=== PATIENT | female | born 1995 | race Caucasian/White ===

== ENCOUNTER → 2020-03-03 08:54 | Outpatient (CLI) | payer BC, SELFPAY ==
[2020-03-03 09:32] LABS: hCG Titer Quant., Serum < 1 mIU/mL (1-3)
== END ==
PROVIDERS: Nurse Practitioner Women's Health; PCP Internal Medicine; Referring Provider Obstetrics & Gynecology; Visit Provider Obstetrics & Gynecology
DX: N91.2 Amenorrhea, unspecified (principal)
CPT/HCPCS: 36415; 84702

== ENCOUNTER → 2021-08-03 | Outpatient (CLI) | payer OTHER, SELFPAY ==
[2021-08-05 22:07] LABS: Chlamydia By Nucleic Acid AMP Positive (Negative)
[2021-08-06 08:08] LABS: Gonococcus By Nucleic Acid AMP Negative (Negative)
[2021-08-09 14:16] LABS: HPV Reflexed? NOT INDICATED
== END | disposition home or self-care (01) ==
LOC: LABSPEC 16:26
PROVIDERS: PCP Internal Medicine; Referring Provider Nurse Practitioner Women's Health; Visit Provider Nurse Practitioner Women's Health
DX: Z12.4 Encounter for screening for malignant neoplasm of cervix (principal); Z11.3 Encounter for screening for infections with a predominantly sexual mode of transmission
CPT/HCPCS: 87491; 87591; 88175; G0145

== ENCOUNTER 2021-11-03 08:43 | Outpatient (CLI) | payer OTHER, SELFPAY ==
[2021-11-05 22:07] LABS: Chlamydia By Nucleic Acid AMP Negative (Negative)
[2021-11-06 19:25] LABS: Gonococcus By Nucleic Acid AMP Negative (Negative)
== END 2021-11-03 23:59 | disposition home or self-care (01) ==
LOC: LABSPEC 11-04 08:44
PROVIDERS: PCP Internal Medicine; Visit Provider Nurse Practitioner Women's Health
DX: Z11.3 Encounter for screening for infections with a predominantly sexual mode of transmission (principal)
CPT/HCPCS: 87491; 87591

== ENCOUNTER 2021-11-17 15:38 | Outpatient (CLI) | payer OTHER, SELFPAY ==
--- NOTE | 2021-11-17 15:39 | RAD_ITS ---
STUDY: X-RAY - LUMBAR SPINE REASON FOR EXAM: Female, 26 years old. Injury TECHNIQUE: 5 view(s) of the lumbar spine were obtained. COMPARISON: None FINDINGS: There is straightening of the normal lumbar lordosis. There is no substantial scoliosis. There is a normal alignment of the vertebrae. Normal vertebral bodies and endplates. Normal disc space heights. The soft tissue structures are unremarkable. RAD/L/S Spine Min 4 Views IMPRESSION: Straightening of the normal lumbar lordosis. Electronically Signed: Trey Piedra MD at 15:58 EDT ,
== END 2021-11-17 23:59 | disposition home or self-care (01) ==
LOC: MTRAD 15:39
PROVIDERS: PCP Internal Medicine; Referring Provider Physician Assistant; Visit Provider Physician Assistant
DX: M54.50 Low back pain, unspecified (principal)
CPT/HCPCS: 72110

== ENCOUNTER → 2022-11-13 | Outpatient (CLI) | payer OTHER, SELFPAY ==
[2022-11-13 03:44] LABS: D-Dimer Quantitative (DVT/PE) < 0.27 FEU/ug/m (0.27-0.49)
[2022-11-13 03:48] LABS: Anion Gap 6 (5-15); BUN 11 mg/dL (7-18); BUN/Creat Ratio 13.6 RATIO (10-20); Calcium,Total 9.4 mg/dL (8.5-10.1); Chloride 105 mmol/L (98-107); Creatinine, Serum 0.81 mg/dL (0.55-1.02); EST Glomerular Filtration Rate 90 mL/min (>60); Est Glom Filt Rate - Afr Amer 109 mL/min (>60); Glucose 96 mg/dL (74-106); Potassium 3.9 mmol/L (3.5-5.1); Sodium Level 138 mmol/L (136-145); Troponin-I HS 7 pg/mL (3.0-54.0)
== END | disposition home or self-care (01) ==
PROVIDERS: PCP Internal Medicine; Visit Provider Family Medicine
DX: R07.9 Chest pain, unspecified (principal)
CPT/HCPCS: 80048; 84484; 85379

== ENCOUNTER → 2022-12-21 | Outpatient (CLI) | payer OTHER, SELFPAY ==
[2022-12-21 12:29] LABS: HIV - WCH Non-Reactive (Nonreactive); Hepatitis C Antibody Non-Reactive (Nonreactive); Syphilis Antibodies Non-reactive
[2022-12-22 06:09] LABS: HSV 2 IgG < 0.91 index (0.00-0.90)
[2022-12-24 12:08] LABS: Chlamydia By Nucleic Acid AMP Negative (Negative); Gonococcus By Nucleic Acid AMP Negative (Negative)
== END | disposition home or self-care (01) ==
PROVIDERS: PCP Internal Medicine; Referring Provider Nurse Practitioner Women's Health; Visit Provider Nurse Practitioner Women's Health
DX: Z20.2 Contact with and (suspected) exposure to infections with a predominantly sexual mode of transmission (principal)
CPT/HCPCS: 36415; 86695; 86696; 86703; 86780; 86803; 87491; 87591

== ENCOUNTER → 2023-12-26 | Outpatient (CLI) | payer OTHER, SELFPAY ==
[2023-12-29 07:08] LABS: Chlamydia By Nucleic Acid AMP Negative (Negative); Gonococcus By Nucleic Acid AMP Negative (Negative)
[2024-01-01 16:06] LABS: HPV Reflexed? NOT INDICATED
== END | disposition home or self-care (01) ==
LOC: LABSPEC 14:25
PROVIDERS: PCP Internal Medicine; Referring Provider Nurse Practitioner Women's Health; Visit Provider Nurse Practitioner Women's Health
DX: Z12.4 Encounter for screening for malignant neoplasm of cervix (principal); Z20.2 Contact with and (suspected) exposure to infections with a predominantly sexual mode of transmission
CPT/HCPCS: 87491; 87591; 88175; G0145

== ENCOUNTER → 2024-03-14 | Outpatient (CLI) | payer OTHER, SELFPAY ==
[2024-03-14 10:57] LABS: hCG Titer Quant., Serum 60 mIU/mL (1-3)
[2024-03-14 11:35] LABS: HIV - WCH Non-Reactive (Nonreactive); Hepatitis C Antibody Non-Reactive (Nonreactive); Syphilis Antibodies Non-reactive
[2024-03-15 06:09] LABS: HSV 2 IgG < 0.91 index (0.00-0.90)
== END | disposition home or self-care (01) ==
LOC: PAVLAB 10:20
PROVIDERS: PCP Internal Medicine; Referring Provider Nurse Practitioner Women's Health; Visit Provider Nurse Practitioner Women's Health
DX: Z34.90 Encounter for supervision of normal pregnancy, unspecified, unspecified trimester (principal); Z20.2 Contact with and (suspected) exposure to infections with a predominantly sexual mode of transmission; Z3A.00 Weeks of gestation of pregnancy not specified
CPT/HCPCS: 36415; 84702; 86695; 86696; 86703; 86780; 86803

== ENCOUNTER → 2024-03-16 | Outpatient (CLI) | payer OTHER, SELFPAY ==
[2024-03-16 11:43] LABS: hCG Titer Quant., Serum 170 mIU/mL (1-3)
== END | disposition home or self-care (01) ==
PROVIDERS: PCP Internal Medicine; Referring Provider Nurse Practitioner Women's Health; Visit Provider Nurse Practitioner Women's Health
DX: Z34.90 Encounter for supervision of normal pregnancy, unspecified, unspecified trimester (principal); Z3A.00 Weeks of gestation of pregnancy not specified
CPT/HCPCS: 36415; 84702

== ENCOUNTER → 2024-03-23 | Outpatient (CLI) | payer SELFPAY ==
[2024-03-23 11:16] LABS: hCG Titer Quant., Serum 3122 mIU/mL (1-3)
== END | disposition home or self-care (01) ==
PROVIDERS: PCP Internal Medicine; Referring Provider Nurse Practitioner Women's Health; Visit Provider Nurse Practitioner Women's Health
DX: Z34.90 Encounter for supervision of normal pregnancy, unspecified, unspecified trimester (principal)
CPT/HCPCS: 36415; 84702

== ENCOUNTER → 2024-04-10 | Outpatient (CLI) | payer SELFPAY ==
--- NOTE | 2024-04-10 12:30 | US_ITS ---
INDICATION: Dating EXAMINATION: Ultrasound US OB Transvaginal TECHNIQUE: Transabdominal pelvic ultrasound was performed. Grayscale, spectral waveform, and color flow Doppler evaluation of the adnexa. COMPARISON: No relevant prior comparison study available LMP: [January 17, 2024 Beta-hCG: Unknown FINDINGS: UTERUS: 9.0 x 5.6 x 6.5 cm. RIGHT OVARY: 3.8 x 2.8 x 2.7 cm. Normal. LEFT OVARY: 2.0 x 2.1 x 3.6 cm. Normal. FREE FLUID: None. INTRAUTERINE GESTATIONAL SAC: Single. The mean sac diameter measures 3.29 cm. YOLK SAC: Identified. The yolk sac measures 0.25 cm POLE: Identified. The crown-rump length measures 1.43 cm. . ESTIMATED GESTATION AGE: 8 weeks and 1 day. HEART MOTION: 148 bpm. PLACENTA: Not visualized due to age. SUBCHORIONIC HEMORRHAGE: None. AMNIOTIC FLUID: Qualitatively normal. US/Transvaginal w/Preg US IMPRESSION: Single live intrauterine . Estimated gestational age is 8 weeks and 1 day. Electronically Signed: Oralia Bro MD at 9:53 EDT ,
== END | disposition home or self-care (01) ==
PROVIDERS: PCP Internal Medicine; Referring Provider Nurse Practitioner Women's Health; Visit Provider Nurse Practitioner Women's Health
DX: Z34.90 Encounter for supervision of normal pregnancy, unspecified, unspecified trimester (principal)
CPT/HCPCS: 76817

== ENCOUNTER → 2024-04-18 | Outpatient (CLI) | payer SELFPAY ==
[2024-04-23 22:07] LABS: Chlamydia By Nucleic Acid AMP Negative (Negative); Gonococcus By Nucleic Acid AMP Negative (Negative)
== END | disposition home or self-care (01) ==
PROVIDERS: PCP Internal Medicine; Referring Provider Advanced Practice Midwife; Visit Provider Advanced Practice Midwife
DX: E66.9 Obesity, unspecified (principal)
CPT/HCPCS: 87086; 87088; 87491; 87591

== ENCOUNTER → 2024-04-25 | Outpatient (CLI) | payer BC, SELFPAY | END | disposition home or self-care (01) | LOC: LABSPEC 14:46 | PROVIDERS: PCP Internal Medicine; Referring Provider Obstetrics & Gynecology; Visit Provider Obstetrics & Gynecology | DX: N89.8 Other specified noninflammatory disorders of vagina (principal) | CPT/HCPCS: 87070; 87205 ==

== ENCOUNTER → 2024-04-30 | Outpatient (CLI) | payer BC, SELFPAY ==
[2024-04-30 08:43] LABS: Absolute Lymphocyte Count 2.11 X10^3/uL (0.83-4.51); Absolute Neutrophil Count 6.9 X10^3/uL (2.0-7.7); Basophil# 0.06 X10^3/uL; Basophil% 0.6 % (0-1); Eosinophil# 0.17 X10^3/uL; Eosinophils% 1.7 % (0-5); Hematocrit 37.1 % (37-47); Hemoglobin 12.4 g/dL (12.0-15.0); Lymphocyte # 2.11 X10^3/ul (0.83-4.51); Lymphocyte % 20.9 % (19-41); Mean Corp Hgb Conc 33.4 g/dL (32-36); Mean Corpuscular Volume 80.7 fL (81-99); Mean Platelet Vol. 9.8 fl (6.2-12.0); Monocyte# 0.75 X10^3/uL; Monocyte% 7.4 % (0-10); NRBC Flagged by Analyzer 0 % (0-5); Neutrophil # 6.93 X10^3/uL (2.7-7.7); Neutrophil % 68.6 % (47-70); Platelet Count 202 K/mm3 (150-450); RBC Distribution Width CV 12.8 % (11.6-14.6); RBC Distribution Width SD 37.2 fl (35.1-43.9); White Blood Count 10.1 K/mm3 (4.4-11.0)
[2024-04-30 09:52] LABS: Hemoglobin A1c 4.8 % (3.8-5.6)
[2024-04-30 10:11] LABS: HIV - WCH Non-Reactive (Nonreactive); Hepatitis B Surface Antigen Non-Reactive (Nonreactive); Hepatitis C Antibody Non-Reactive (Nonreactive); Rubella IgG Reactive (Nonreactive); Syphilis Antibodies Non-reactive
== END | disposition home or self-care (01) ==
LOC: LAB 08:04
PROVIDERS: PCP Internal Medicine; Referring Provider Advanced Practice Midwife; Visit Provider Advanced Practice Midwife
DX: O99.214 Obesity complicating childbirth (principal); Z3A.00 Weeks of gestation of pregnancy not specified
CPT/HCPCS: 36415; 83036; 85025; 86703; 86762; 86780; 86803; 86850; 86900; 86901; 87340

== ENCOUNTER → 2024-06-14 | Outpatient (CLI) | payer BC, SELFPAY ==
--- OUTSIDE RECORDS SUMMARY | 2024-06-14 08:31 | XMS RPT_ITS | CCD ---
Author Organization [facility] Care Team Providers Care Interpretive Program Coordinator Name Role Phone Leah Madrigal Unavailable Fast, Gililan A Unavailable Holly Cuellar Unavailable Unavailable Unavailable Unavailable Leah Madrigal Attending Unavailable Fast, Gillian A Referring Unavailable Leah Madrigal Consulting Unavailable Leah Madrigal DO Unavailable [phone] Fast DO, Gillian A Unavailable Gravius RECORD FILING CLERK, Talya Unavailable Unavailable Slarb SHIP ENGINES OPERATING ENGINEER, Jaqui Unavailable Unavailable Unavailable Unavailable Mat SHIP ENGINES OPERATING ENGINEER, SASKIA Unavailable Unavailable Deion SHIP ENGINES OPERATING ENGINEER, Abelardo Unavailable Unavailable Unavailable Unavailable Medications Current Medications Medication Drug Class(es) Dates Sig (Normalized) Sig (Original) ALPRAZolam 0.5 mg oral tablet (2 sources) Benzodiazepine Start: 04-14-2023 Xanax 0.5 mg oral tablet 1 (one) tablet q 6-8 hours prn anxiety with flying for 0 days Quantity: 10 {Tablet} Refills: 0 Ordered: 14-Apr-2023 Leah Madrigal DO, DO, Kathleen Start : 14-Apr-2023 Active Comments: Disp: 10 TEN Dx: Fear of flyingoars Start: 04-14-2023 take 1 tablet by latonia th every four to six hours as needed for anxiety Xanax 0.5 mg oral tablet 1 (one) tablet q 4-6 hours prn anxiety with flying for 0 days Quantity: 10 {Tablet} Refills: 0 Ordered: 14-Apr-2023 Leah Madrigal DO, DO, Kathleen Start : 14-Apr-2023 Active Comments: Disp: 10 TEN Dx: Fear of flying Comment on above: Disp: 10 TEN Dx: Fea r of flying Disp: 10 TEN Dx: Fea r of flyingoars Sprintec (28) 0.25-35 mg-mcg oral tablet (8 sources) Progestin, Estrogen Start: 04-14-2023 take 1 tablet by mouth once daily Sprintec (28) 0.25-35 mg-mcg oral tablet 1 (one) Tablet daily for 30 days Quantity: 30 {Tablet} Refills: 2 Ordered: 14-Apr-2023 Leah Madrigal DO, DO, Kathleen Start : 14-Apr-2023 Active Start: 08-22-2018 End: 10-28-2019 take 1 tablet by mouth once daily Sprintec 28 0.25-35 MG-MCG Oral Tablet 1 (one) Tablet daily for 30 days Quantity: 30 {Tablet} Refills: 2 Ordered: 28-Oct-2019 Talya Marin CMA Start : 22-Aug-2018 End : 28-Oct-2019 Inactive Start: 08-22-2018 take 1 tablet by latonia th once daily Sprintec 28 0.25-35 MG-MCG Oral Tablet 1 (one) Tablet daily for 30 days Quantity: 30 {Tablet} Refills: 2 Ordered: 22-Aug-2018 Leah Madrigal DO, DO, Kathleen Start : 22-Aug-2018 Active End: 08-18-2015 take 1 tablet by mouth once daily SPRINTEC 28, 0.25-35MG-MCG (Oral Tablet) 1 tab daily (0.25-35 MG-MCG) End : 18-Aug-2015 Discontinued ondansetron 4 mg oral tablet (2 sources) Serotonin-3 Receptor Antagonist Start: 04-14-2023 ondansetron HCL 4 mg oral tablet 1 (one) tablet q 6-8 hours prn nausea for 0 days Quantity: 10 {Tablet} Refills: 0 Ordered: 14-Apr-2023 Leah Madrigal DO, DO, Kathleen Start : 14-Apr-2023 Active Start: 04-14-2023 ondansetron HC L 4 mg oral tablet 1 (one) tablet q 6-8 hours prn nausea for 0 days Quantity: 10 {Tablet} Refills: 0 Ordered: 14-Apr-2023 Kaitlin TYLER Leah Mirza DO Start : 14-Apr-2023 Active rizatriptan 10 mg disintegrating oral tablet (3 sources) Serotonin-1b and Serotonin-1d Receptor Agonist Start: 04-14-2023 take 1 tablet by mouth every two hours Maxalt-ENVIRONMENTAL AIR SPECIALIST 10 mg oral Tablet,disintegrating 1 (one) Tablet at onset of migrainous cruz may repeat in 2hr if needed for 0 days Quantity: 12 {Tablet} Refills: 2 Ordered: 14-Apr-2023 Kaitlin TYLER Leah Madrigal DO Leah Start : 14-Apr-2023 Active Start: 04-14-2023 take 1 tablet by latonia th every two hours Maxalt-ENVIRONMENTAL AIR SPECIALIST 10 mg oral Tablet,disintegrating 1 (one) Tablet at onset of migrainous cruz may repeat in 2hr if needed for 0 days Quantity: 12 {Tablet} Refills: 2 Ordered: 14-Apr-2023 Kaitlin TYLER Leah Madrigal DO Leah Start : 14-Apr-2023 Active Start: 03-05-2021 take 1 tablet by latonia th every two hours Maxalt-ENVIRONMENTAL AIR SPECIALIST 10 MG Oral Tablet Disintegrating 1 (one) Tablet at onset of migrainous cruz may repeat in 2hr if needed for 0 days Quantity: 12 {Tablet} Refills: 2 Ordered: 05-Mar-2021 GravAlexandra bland CMAin Start : 05-Mar-2021 Active tiZANidine 4 mg oral tablet (3 sources) Central alpha-2 Adrenergic Agonist Start: 03-05-2021 End: 04-14-2023 take 1 tablet by mouth twice daily as needed tiZANidine 4 mg oral tablet 1 (one) Tablet bid prn muscle tension for 0 days Quantity: 30 {Tablet} Refills: 0 Ordered: 14-Apr-2023 SASKIA Rivero LPN Start : 05-Mar-2021 End : 14-Apr-2023 Inactive Completed/Discontinued Medications Medication Drug Class(es) Dates Sig (Normalized) Sig (Original) acetaminophen 500 mg / caffeine 65 mg oral tablet (3 sources) Central Nervous System Stimulant, Methylxanthine Excedrin Tension Headache 500-65 MG Oral Tablet daily (500-65 MG) Inactive azithromycin 250 mg oral tablet (4 sources) Macrolide Antimicrobial Start: 10-28-2016 End: 10-27-2017 Zithromax Z-Meño 250 MG Oral Tablet uad Tablet until gone for 0 days Quantity: 1 {Package} Refills: 0 Ordered: 27-Oct-2017 Holly Cuellar RN Start : 28-Oct-2016 End : 27-Oct-2017 Inactive Comments: take as one dose so 1gm total Comment on above: take as one dose so 1gm total cephalexin 500 mg oral capsule (4 sources) Cephalosporin Antibacterial Start: 08-18-2015 End: 08-25-2015 take 1 capsule by mouth twice daily KEFLEX, 500MG (Oral Capsule) 1 (one) Capsule bid for 7 days Quantity: 14 {QS} Refills: 0 Ordered: 18-Aug-2015 Vee Angelita Start : 18-Aug-2015 End : 25-Aug-2015 Inactive citalopram 10 mg oral tablet (4 sources) Serotonin Reuptake Inhibitor Start: 06-07-2017 End: 10-28-2019 take 1 tablet by mouth once daily Citalopram Hydrobromide 10 MG Oral Tablet 1 (one) Tablet qd for 0 days Quantity: 30 {Tablet} Refills: 10 Ordered: 28-Oct-2019 Talya Marin CMA Start : 07-Jun-2017 End : 28-Oct-2019 Inactive levothyroxine sodium 0.025 mg oral tablet (3 sources) l-Thyroxine Start: 02-05-2020 End: 03-05-2021 take 1 tablet by mouth once daily Synthroid 25 MCG Oral Tablet 1 (one) Tablet qd on empty stomach for 0 days Quantity: 90 {Tablet} Refills: 1 Ordered: 05-Mar-2021 Tania VILLALOBOS Talya Start : 05-Feb-2020 End : 05-Mar-2021 Inactive Dispense as Written Comments: EDUAR Comment on above: EDUAR nitrofurantoin, macrocrystals 25 mg / nitrofurantoin, monohydrate 75 mg oral capsule (4 sources) Nitrofuran Antibacterial Start: 10-24-2016 End: 10-31-2016 take 1 capsule by mouth twice daily Macrobid 100 MG Oral Capsule 1 (one) Capsule bid for 7 days Quantity: 14 {Capsule} Refills: 0 Ordered: 24-Oct-2016 Leah Madrigal DO, DO, Kathleen Start : 24-Oct-2016 End : 31-Oct-2016 Inactive Problems Active Problems Problem Classification Problem Date Documented Date Episodic/Chronic Anxiety disorders (12 sources) Anxiety; Translations: [Mixed anxiety and depressive disorder] 10-27-2017 Chronic Comment on above: going to [place] 8 tasha r plane ride Bacterial infection; unspecified site (8 sources) Chlamydial infection; Translations: [Chlamydia] Resolved: 10-27-2017 10-27-2017 Episodic Blindness and vision defects (5 sources) Eye / vision finding; Translations: [Change in vision] Resolved: 03-05-2021 03-05-2021 Episodic Cardiac dysrhythmias (5 sources) Palpitations; Translations: [Palpitation] Resolved: 03-05-2021 03-05-2021 Episodic Contraceptive and procreative management (11 sources) Contraception ; Translations: [General counseling and advice for contraceptive management] 03-05-2021 Episodic Genitourinary symptoms and ill-defined conditions (8 sources) Dysuria; Translations: [Dysuria] 10-27-2017 Episodic Headache; including migraine (6 sources) Headache; Translations: [Chronic intractable headache, unspecified headache type] 03-05-2021 Episodic Comment on above: combo muslce tension and migraine --and analgesic rebound-- stop excrdrin daily immediatly Headache; including migraine (1 source) Headache; including migraine Immunizations and screening for infectious disease (16 sources) Need for prophylactic vaccination and inoculation against influenza; Translations: [Needs influenza immunization] 03-05-2021 Episodic Malaise and fatigue (12 sources) Fatigue; Translations: [Fatigue] 03-05-2021 Episodic Mood disorders (4 sources) Mood disorders Nausea and vomiting (4 sources) Nausea; Translations: [Nausea] 04-14-2023 Episodic Comment on above: with flying going to [place] Nonmalignant breast conditions (6 sources) Breast lump; Translations: [Breast lump on right side at 3 o'clock position] 10-27-2017 Episodic Other female genital disorders (6 sources) Abnormal vaginal bleeding; Translations: [Abnormal vaginal bleeding] Resolved: 03-05-2021 03-05-2021 Chronic Other female genital disorders (2 sources) Abnormal vaginal bleeding; Translations: [Abnormal vaginal bleeding] 10-27-2017 Episodic Other infections; including parasitic (6 sources) History of chlamydial infection; Translations: [History of chlamydia] 10-27-2017 Episodic Comment on above: binh on pap to assur e not asx and it was erradicated anthony with new relationship Other nutritional; endocrine; and metabolic disorders (20 sources) Body mass index 30+ - obesity; Translations: [BMI 38.0-38.9,adult] Resolved: 04-14-2023 10-31-2017 Chronic Other nutritional; endocrine; and metabolic disorders (5 sources) Body mass index 40+ - severely obese; Translations: [BMI 40.0-44.9, adult] Resolved: 03-05-2021 03-05-2021 Chronic Other screening for suspected conditions (not mental disorders or infectious disease) (10 sources) Thyroid hormone tests abnormal; Translations: [Abnormal TSH] 03-05-2021 Episodic Other skin disorders (6 sources) Eruption; Translations: [Rash] Resolved: 10-09-2015 10-24-2016 Episodic Comment on above: rt side only acne vs foliculitis Residual codes; unclassified (8 sources) Family history of ischemic heart disease; Translations: [FAMILY HISTORY OF ISCHEMIC HEART DISEASE (Renamed from Fam hx-ischem heart disease)] 10-27-2017 Episodic Residual codes; unclassified (1 source) Needs influenza immunization; Translations: [Need for prophylactic vaccination and inoculation against influenza (Renamed from Need for immunization against influenza)] 10-27-2017 Episodic Residual codes; unclassified (16 sources) Non-smoker; Translations: [Nonsmoker] 10-28-2019 Episodic Thyroid disorders (9 sources) Hypothyroidism; Translations: [Hypothyroid] 03-05-2021 Chronic Unclassified (9 sources) General counseling and advice for contraceptive management; Translations: [Patient encounter status] 10-27-2017 Unclassified (20 sources) Unclassified (1 source) Elevated C-reactive protein Unclassified (3 sources) Non-smoker Unclassified (1 source) BMI 38.0-38.9,adult Unclassified (1 source) BMI 39.0-39.9,adult Unclassified (1 source) Change in vision Unclassified (1 source) Palpitation Urinary tract infections (6 sources) Bacterial urinary infection; Translations: [UTI (urinary tract infection), bacterial] 10-27-2017 Episodic Past or Other Problems Problem Classification Problem Date Documented Date Episodic/Chronic Unclassified (3 sources) Physical exam, annual; Translations: [Patient encounter status] Resolved: 10-09-2015 10-09-2015 Comment on above: GAVE gardasil info t alked about hpv and pap in next 1-2 years Unclassified (2 sources) Rash Unclassified (6 sources) Patient encounter status; Translations: [Encounter for gynecological examination with abnormal finding] 10-27-2017 Unclassified (3 sources) Non-smoker; Translations: [Nonsmoker] 10-27-2017 Unclassified (4 sources) Pregnancies (); Translations: [Pregnancies ()] 10-27-2017 Comment on above: 0. Unclassified (2 sources) Screening for HPV (human papillomavirus) (Renamed from Encounter for screening for human papillomavirus (HPV)) Unclassified (4 sources) No previous Illnesses Resolved: 10-09-2015 10-24-2016 Unclassified (4 sources) Unspecified Diagnosis Resolved: 10-09-2015 10-09-2015 Unclassified (2 sources) BMI 35.0-35.9,adult Unclassified (2 sources) Breast lump on right side at 3 o'clock position Unclassified (2 sources) History of chlamydia Unclassified (2 sources) BMI 34.0-34.9,adult Unclassified (1 source) BMI 40.0-44.9, adult Unclassified (1 source) Abnormal TSH Urinary tract infections (2 sources) Urinary tract infections Results Test Name Value Interpretation Reference Range Facility KAN (ANTINUCLEAR ANTIBODY) ( [id number])Ordered By: Band Sawmill Operator on 03-05-2021 Nuclear Ab Ql (S) Negative Normal Compreh ensive [facility]; [facility] Work Phone: Comment on above: PATIENT NOT FASTINGP ERFORMED BY: [employer]70 [facility] [id number] C-REACTIVE PROTEIN ([id number])Or dered By: Band Sawmill Operator on 03-05-2021 CRP [Mass/Vol] 14 mg/L Abnormal 0-10 Comprehens divya [facility]; [facility] Work Phone: Comment on above: PATIENT NOT FASTINGP ERFORMED BY: [employer]70 [email or web address] [id number] CALCIFIDIOL (11934) VIT D 25 Ordered By: Band Sawmill Operator on 03-05-2021 25-hydroxyvitamin D [Mass/Vol] 43.2 ng/mL Normal 30.0-100.0 [facility]; [facility] Work Phone: Comment on above: Vitamin D deficiency has been defined by the Vista ofMedicine and an Endocrine Society practice guideline as alevel of serum 25-OH vitamin D less than 20 ng/mL (1,2).The Endocrine Society went on to further define vitamin Dinsufficiency as a level between 21 and 29 ng/mL (2).1. IOM (Vista of Medicine). 2010. Dietary reference intakes for calcium and D. [place]: The National Academies Press.2. Zainab MF, Delroy NC, Patrick CRUZ, et al. Evaluation, treatment, and prevention of vitamin D deficiency: an Endocrine Society clinical practice guideline. JCEM. 2010; 96(7):1911-30. PATIENT NOT FASTINGP ERFORMED BY: [employer] LabAfflerp Vdxkvq9099 [address]Dublin [place] [id number] CBC (AUTO) ([id number])Ordered By : Band Sawmill Operator on 03-05-2021 Erythrocyte distribution width (RBC) [Ratio] 13.1 % Normal 11.7-15.4 [facility]; [facility] Work Phone: Comment on above: PATIENT NOT FASTINGP ERFORMED BY: [facility] Gbjphv2975 [address]Dublin [place] [id number] Hematocrit (Bld) [Volume fraction] 42.3 % Normal 34.0-46.6 [facility]; [facility] Work Phone: Comment on above: PATIENT NOT FASTINGP ERFORMED BY: [facility] Smngqd1827 [address]Dublin [place] [id number] Hemoglobin (Bld) [Mass/Vol] 13.9 g/dL Normal 11.1-15.9 [facility]; [facility] Work Phone: Comment on above: PATIENT NOT FASTINGP ERFORMED BY: [facility] Fsjoll3862 [address]Dublin [place] [id number] MCH (RBC) [Entitic mass] 26.7 pg Normal 26.6-33.0 [facility]; [facility] Work Phone: Comment on above: PATIENT NOT FASTINGP ERFORMED BY: CB [facility] Mmdwtk1541 [address]Dublin [place] [id number] MCHC (RBC) [Mass/Vol] 32.9 g/dL Normal 31.5-35.7 [facility]; [facility] Work Phone: Comment on above: PATIENT NOT FASTINGP ERFORMED BY: CB [facility] Goxias7034 [address]Dublin [place] [id number] MCV (RBC) [Entitic vol] 81 fL Normal 79-97 [facility]; [facility] Work Phone: Comment on above: PATIENT NOT FASTINGP ERFORMED BY: CB [facility] Qlptti4118 [address]Dublin [place] [id number] Platelets (Bld) [#/Vol] 253 10*3/uL Normal 150-450 [facility]; [facility] Work Phone: Comment on above: PATIENT NOT FASTINGP ERFORMED BY: CB [facility] Klnygq7142 [address]Dublin [place] [id number] RBC (Bld) [#/Vol] 5.20 10*6/uL Normal 3.77-5.28 Compr ensive [facility]; [facility] Work Phone: Comment on above: PATIENT NOT FASTINGP ERFORMED BY: CB [facility] Wgzive6226 [address]Dublin [place] [id number] WBC (Bld) [#/Vol] 6.0 10*3/uL Normal 3.4-10.8 Compre [facility]; [facility] Work Phone: Comment on above: PATIENT NOT FASTINGP ERFORMED BY: CB [facility] Cxbowp5454 [address]Dublin [place] [id number] HCG Qualitative, Serum (8470 3)Ordered By: Band Sawmill Operator on 03-05-2021 Beta HCG ( test) Ql Negative Normal [facility]; [facility] Work Phone: Comment on above: PATIENT NOT FASTINGP ERFORMED BY: CB [facility] Nthenc7859 [address]Dublin [place] [id number] METABOLIC PANEL, COMPREHENSI VE ([id number])Ordered By: Band Sawmill Operator on 03-05-2021 Albumin [Mass/Vol] 4.4 g/dL Normal 3.9-5.0 [facility]; [facility] Work Phone: Comment on above: PATIENT NOT FASTINGP ERFORMED BY: INGRID LabCoandrea HendrixAnaohv4313 [address]blin [place] [id number] Albumin/Globulin [Mass ratio] 1.5 {ratio} Normal 1.2-2.2 [facility]; [facility] Work Phone: Comment on above: PATIENT NOT FASTINGP ERFORMED BY: INGRID LabCoandrea HendrixPdnjnt1763 [address]blin [place] [id number] ALP [Catalytic activity/Vol] 77 U/L Normal 48-121 [facility]; [facility] Work Phone: Comment on above: PATIENT NOT FASTINGP ERFORMED BY: INGRID LabCoandrea HendrixBdcjfn4235 [address] RoadCritical Access Hospitalin [place] [id number] ALT [Catalytic activity/Vol] 19 U/L Normal 0-32 [facility]; [facility] Work Phone: Comment on above: PATIENT NOT FASTINGP ERFORMED BY: INGRID LabDenny Vocuql[address] [facility] [place] [id number] AST [Catalytic activity/Vol] 20 U/L Normal 0-40 [facility]; [facility] Work Phone: Comment on above: PATIENT NOT FASTINGP ERFORMED BY: CB [facility] Podvhw[address] [facility]in [place] [id number] Bilirubin [Mass/Vol] 0.4 mg/dL Normal 0.0-1.2 [facility]; [facility] Work Phone: Comment on above: PATIENT NOT FASTINGP ERFORMED BY: INGRID LabCoandrea Bersre[address] [facility] [place] [id number] Calcium [Mass/Vol] 9.0 mg/dL Normal 8.7-10.2 [facility]; [facility] Work Phone: Comment on above: PATIENT NOT FASTINGP ERFORMED BY: [facility] Eedplh1373 [address]bl[address] [place] [id number] Chloride [Moles/Vol] 104 mmol/L Normal 96-106 [facility]; [facility] Work Phone: Comment on above: PATIENT NOT FASTINGP ERFORMED BY: CB [facility] Ymcoin[address] [facility] [place] [id number] CO2 [Moles/Vol] 22 mmol/L Normal 20-29 [facility]; [facility] Work Phone: Comment on above: PATIENT NOT FASTINGP ERFORMED BY: CB [facility] Iqugzk4250 [address]bl[address] [place] [id number] Creatinine [Mass/Vol] 0.79 mg/dL Normal 0.57-1.00 [facility]; [facility] Work Phone: Comment on above: PATIENT NOT FASTINGP ERFORMED BY: [facility] Ypbbzw[address] [facility] [id number] GFR/1.73 sq M.predicted among blacks CKD-EPI (S/P/Bld) [Vol rate/Area] 120 mL/min/1.73 Normal [facility]; [facility] Work Phone: Comment on above: [facility] currently reports eGFR in compliance with the current recommendations of the National Kidney Foundation. [facility]aint [facility] will update reporting as new guidelines are published from the NKF-ASN Task force. PATIENT NOT FASTINGP ERFORMED BY: [facility] Uebdgu[address] [facility] [id number] GFR/1.73 sq M.predicted among non-blacks CKD-EPI (S/P/Bld) [Vol rate/Area] 104 mL/min/1.73 Normal [facility]; [facility] Work Phone: Comment on above: PATIENT NOT FASTINGP ERFORMED BY: CB [facility] Kgvckz[address] [facility] [place] [id number] Globulin (S) [Mass/Vol] 3.0 g/dL Normal 1.5-4.5 [facility]; [facility] Work Phone: Comment on above: PATIENT NOT FASTINGP ERFORMED BY: INGRID LabDenny Avila[address] [facility] [place] [id number] Glucose [Mass/Vol] 85 mg/dL Normal 65-99 [facility]; [facility] Work Phone: Comment on above: PATIENT NOT FASTINGP ERFORMED BY: INGRID LabDenny Avila[address] [facility] [id number] Potassium [Moles/Vol] 4.7 mmol/L Normal 3.5-5.2 [facility]; [facility] Work Phone: Comment on above: PATIENT NOT FASTINGP ERFORMED BY: INGRID LabDenny HendrixMqcemm[address] [facility] [id number] Protein [Mass/Vol] 7.4 g/dL Normal 6.0-8.5 [facility]; [facility] Work Phone: Comment on above: PATIENT NOT FASTINGP ERFORMED BY: INGRID LabDenny HendrixFqixnt[address] [facility] [id number] Sodium [Moles/Vol] 140 mmol/L Normal 134-144 [facility]; [facility] Work Phone: Comment on above: PATIENT NOT FASTINGP ERFORMED BY: INGRID Hendrixlin6370 [facility] [id number] Urea nitrogen [Mass/Vol] 11 mg/dL Normal 6-20 [facility]; [facility] Work Phone: Comment on above: PATIENT NOT FASTINGP ERFORMED BY: INGRID LabCo Pdhyfd[address] [facility] [id number] Urea nitrogen/Creatini ne [Mass ratio] 14 mg/mg Normal 9-23 [facility]; [facility] Work Phone: Comment on above: PATIENT NOT FASTINGP ERFORMED BY: INGRID LabCoandrea HendrixCzttwb[address] [facility]in [place] [id number] SED RATE ERYTHROCYTE ([id number]) Ordered By: Band Sawmill Operator on 03-05-2021 ESR (Bld) [Velocity] 12 mm/h Normal 0-32 [facility]; [facility] Work Phone: Comment on above: PATIENT NOT FASTINGP ERFORMED BY: [facility] Vxitmx9580 [address]Dublin [place] [id number] TSH (25072)Ordered By: [place] [employer] m Decaler on 03-05-2021 TSH Qn 2.420 {uIU/mL} Normal 0.450-4.500 Comprehen sive [facility]; [facility] Work Phone: Comment on above: PATIENT NOT FASTINGP ERFORMED BY: CB [facility] Twtpuv9091 [address]Dublin [place] [id number] VITAMIN B-12 (CYANOCOBALAMIN ) ([id number])Ordered By: Band Sawmill Operator on 03-05-2021 Cobalamin (Vitamin B12) [Mass/Vol] 501 pg/mL Normal 232-1245 [facility]; [facility] Work Phone: Comment on above: PATIENT NOT FASTINGP ERFORMED BY: [facility] Isogot9450 [address]Dublin [place] [id number] KAN (ANTINUCLEAR ANTIBODY) ( [id number])Ordered By: Band Sawmill Operator on 10-28-2019 Nuclear Ab Ql (S) Negative Normal Compreh ensive [facility]; [facility] Work Phone: Comment on above: PATIENT NOT FASTINGP ERFORMED BY: INGRID [facility] Rocpmv1777 [address]Dublin [place] [id number] C-REACTIVE PROTEIN ([id number])Or dered By: Band Sawmill Operator on 10-28-2019 CRP [Mass/Vol] 8 mg/L Normal 0-10 Comprehens divya [facility]; [facility] Work Phone: Comment on above: PATIENT NOT FASTINGP ERFORMED BY: [facility] Hrfsbz3870 [address]Dublin [place] [id number] CALCIFIDIOL (14873) VIT D 25 Ordered By: Band Sawmill Operator on 10-28-2019 25-hydroxyvitamin D [Mass/Vol] 42.2 ng/mL Normal 30.0-100.0 [facility]; [facility] Work Phone: Comment on above: Vitamin D deficiency has been defined by the Vista ofMedicine and an Endocrine Society practice guideline as alevel of serum 25-OH vitamin D less than 20 ng/mL (1,2).The Endocrine Society went on to further define vitamin Dinsufficiency as a level between 21 and 29 ng/mL (2).1. IOM (Vista of Medicine). 2010. Dietary reference intakes for calcium and D. [place]: The National Academies Press.2. Zainab MF, Delroy SINGH, Patrick CRUZ, et al. Evaluation, treatment, and prevention of vitamin D deficiency: an Endocrine Society clinical practice guideline. JCEM. 2010; 96(7):1911-30. PATIENT NOT FASTINGP ERFORMED BY: CB [facility] Lmwdia8892 [address] RoadDublin [place] [id number] CBC W/AUTO DIFF WBC (84224)O rdered By: Band Sawmill Operator on 10-28-2019 Basophils (Bld) [#/Vol] 0.1 10*3/uL Normal 0.0-0.2 [facility]; [facility] Work Phone: Comment on above: PATIENT NOT FASTINGP ERFORMED BY: CB [facility] Etstzd2859 [address] RoadDublin [place] [id number] Basophils/100 WBC (Bld) 1 % Normal [facility]; [facility] Work Phone: Comment on above: PATIENT NOT FASTINGP ERFORMED BY: CB [facility] Qrmzid3069 [address] RoadDublin [place] [id number] Eosinophils (Bld) [#/Vol] 0.2 10*3/uL Normal 0.0-0.4 [facility]; [facility] Work Phone: Comment on above: PATIENT NOT FASTINGP ERFORMED BY: CB [facility] Ojfonb2836 [address] RoadDublin [place] [id number] Eosinophils/100 WBC (Bld) 3 % Normal [facility]; [facility] Work Phone: Comment on above: PATIENT NOT FASTINGP ERFORMED BY: CB [facility] Kkaomq3491 [address] RoadDublin [place] [id number] Erythrocyte distribution width (RBC) [Ratio] 13.4 % Normal 11.7-15.4 [facility]; [facility] Work Phone: Comment on above: PATIENT NOT FASTINGP ERFORMED BY: INGRID Avila6370 [address]blin [place] [id number] Hematocrit (Bld) [Volume fraction] 42.1 % Normal 34.0-46.6 [facility]; [facility] Work Phone: Comment on above: PATIENT NOT FASTINGP ERFORMED BY: INGRID GarlandCoandrea HendrixBhejcx1741 [address] RoadCritical Access Hospitalin [place] [id number] Hemoglobin (Bld) [Mass/Vol] 13.7 g/dL Normal 11.1-15.9 [facility]; [facility] Work Phone: Comment on above: PATIENT NOT FASTINGP ERFORMED BY: INGRID Hendrixlin6370 [address] RoadDuin [place] [id number] Immature granulocytes (Bld) [#/Vol] 0.0 10*3/uL Normal 0.0-0.1 [facility]; [facility] Work Phone: Comment on above: PATIENT NOT FASTINGP ERFORMED BY: INGRID Avila6370 [address] Roadblin [place] [id number] Immature granulocytes/100 WBC (Bld) 0 % Normal [facility]; [facility] Work Phone: Comment on above: PATIENT NOT FASTINGP ERFORMED BY: INGRID Hendrixlin[address] [facility] [place] [id number] Lymphocytes (Bld) [#/Vol] 2.2 10*3/uL Normal 0.7-3.1 [facility]; [facility] Work Phone: Comment on above: PATIENT NOT FASTINGP ERFORMED BY: INGRID LabCoandrea HendrixLunsyz2823 [address] RoadDublin [place] [id number] Lymphocytes/100 WBC (Bld) 32 % Normal [facility]; [facility] Work Phone: Comment on above: PATIENT NOT FASTINGP ERFORMED BY: INGRID [facility] Qnshju9136 [address] RoadDublin [place] [id number] MCH (RBC) [Entitic mass] 26.1 pg Abnormal 26.6-33.0 [facility]; [facility] Work Phone: Comment on above: PATIENT NOT FASTINGP ERFORMED BY: CB [facility] Ydogya3724 [address] RoadDublin [place] [id number] MCHC (RBC) [Mass/Vol] 32.5 g/dL Normal 31.5-35.7 [facility]; [facility] Work Phone: Comment on above: PATIENT NOT FASTINGP ERFORMED BY: CB [facility] Matoiy5936 [address] RoadDublin [place] [id number] MCV (RBC) [Entitic vol] 80 fL Normal 79-97 [facility]; [facility] Work Phone: Comment on above: PATIENT NOT FASTINGP ERFORMED BY: INGRID [facility] Jhoonf6558 [address] RoadDublin [place] [id number] Monocytes (Bld) [#/Vol] 0.6 10*3/uL Normal 0.1-0.9 [facility]; [facility] Work Phone: Comment on above: PATIENT NOT FASTINGP ERFORMED BY: CB [facility] Pdrphd2250 [address]Dublin [place] [id number] Monocytes/100 WBC (Bld) 9 % Normal [facility]; [facility] Work Phone: Comment on above: PATIENT NOT FASTINGP ERFORMED BY: CB [facility] Iyrtde4058 [address] RoadDublin [place] [id number] Neutrophils (Bld) [#/Vol] 3.8 10*3/uL Normal 1.4-7.0 [facility]; [facility] Work Phone: Comment on above: PATIENT NOT FASTINGP ERFORMED BY: CB [facility] Dbhetd2100 [address]Dublin [place] [id number] Neutrophils/100 WBC (Bld) 55 % Normal [facility]; [facility] Work Phone: Comment on above: PATIENT NOT FASTINGP ERFORMED BY: CB [facility] Ruapfj7358 [address] RoadDublin [place] [id number] Platelets (Bld) [#/Vol] 257 10*3/uL Normal 150-450 [facility]; [facility] Work Phone: Comment on above: PATIENT NOT FASTINGP ERFORMED BY: INGRID [facility] Kqgkwi8468 [address] RoadDublin [place] [id number] RBC (Bld) [#/Vol] 5.25 10*6/uL Normal 3.77-5.28 [facility]; [facility] Work Phone: Comment on above: PATIENT NOT FASTINGP ERFORMED BY: CB [facility] Oxdsii8304 [address] RoadDublin [place] [id number] WBC (Bld) [#/Vol] 6.9 10*3/uL Normal 3.4-10.8 Compre [facility]; [facility] Work Phone: Comment on above: PATIENT NOT FASTINGP ERFORMED BY: CB [facility] Aysbva6806 [address] RoadDublin [place] [id number] METABOLIC PANEL, COMPREHENSI VE (88669)Ordered By: Band Sawmill Operator on 10-28-2019 Albumin [Mass/Vol] 4.4 g/dL Normal 3.9-5.0 [facility]; [facility] Work Phone: Comment on above: PATIENT NOT FASTINGP ERFORMED BY: CB [facility] Unzzes0001 [address] RoadDublin [place] [id number] Albumin/Globulin [Mass ratio] 1.8 {ratio} Normal 1.2-2.2 [facility]; [facility] Work Phone: Comment on above: PATIENT NOT FASTINGP ERFORMED BY: CB [facility] Whqbxa3322 [address] RoadDublin [place] [id number] ALP [Catalytic activity/Vol] 71 U/L Normal 39-117 [facility]; [facility] Work Phone: Comment on above: PATIENT NOT FASTINGP ERFORMED BY: CB [facility] Gpehxg8790 [address] RoadDublin [place] [id number] ALT [Catalytic activity/Vol] 20 U/L Normal 0-32 [facility]; [facility] Work Phone: Comment on above: PATIENT NOT FASTINGP ERFORMED BY: CB [facility] Domqtk6506 [address] RoadDublin [place] [id number] AST [Catalytic activity/Vol] 21 U/L Normal 0-40 [facility]; [facility] Work Phone: Comment on above: PATIENT NOT FASTINGP ERFORMED BY: CB [facility] Ppwwko6029 [address] RoadDublin [place] [id number] Bilirubin [Mass/Vol] 0.3 mg/dL Normal 0.0-1.2 [facility]; [facility] Work Phone: Comment on above: PATIENT NOT FASTINGP ERFORMED BY: CB [facility] Lillbh6613 [address] RoadDublin [place] [id number] Calcium [Mass/Vol] 9.2 mg/dL Normal 8.7-10.2 [facility]; [facility] Work Phone: Comment on above: PATIENT NOT FASTINGP ERFORMED BY: CB [facility] Yeingx4249 [address] RoadDublin [place] [id number] Chloride [Moles/Vol] 104 mmol/L Normal 96-106 [facility]; [facility] Work Phone: Comment on above: PATIENT NOT FASTINGP ERFORMED BY: CB [facility] Glrrnw4843 [address] RoadDublin [place] [id number] CO2 [Moles/Vol] 21 mmol/L Normal 20-29 [facility]; [facility] Work Phone: Comment on above: PATIENT NOT FASTINGP ERFORMED BY: CB [facility] Bqhkqa6099 [address] RoadDublin [place] [id number] Creatinine [Mass/Vol] 1.00 mg/dL Normal 0.57-1.00 [facility]; [facility] Work Phone: Comment on above: PATIENT NOT FASTINGP ERFORMED BY: CB [facility] Ibqufu9027 [address] RoadDublin [place] [id number] GFR/1.73 sq M.predicted among blacks CKD-EPI (S/P/Bld) [Vol rate/Area] 91 mL/min/1.73 Normal [facility]; [facility] Work Phone: Comment on above: PATIENT NOT FASTINGP ERFORMED BY: INGRID LabCoandrea Zcbkuo6429 [address] RoadDublin [place] [id number] GFR/1.73 sq M.predicted among non-blacks CKD-EPI (S/P/Bld) [Vol rate/Area] 79 mL/min/1.73 Normal [facility]; [facility] Work Phone: Comment on above: PATIENT NOT FASTINGP ERFORMED BY: CB [facility] Clzxsp3181 [address] RoadDublin [place] [id number] Globulin (S) [Mass/Vol] 2.5 g/dL Normal 1.5-4.5 [facility]; [facility] Work Phone: Comment on above: PATIENT NOT FASTINGP ERFORMED BY: INGRID [facility] Esvkub3832 [address] RoadDublin [place] [id number] Glucose [Mass/Vol] 86 mg/dL Normal 65-99 [facility]; [facility] Work Phone: Comment on above: PATIENT NOT FASTINGP ERFORMED BY: INGRID [facility] Eskgmc6883 [address]Dublin [place] [id number] Potassium [Moles/Vol] 4.2 mmol/L Normal 3.5-5.2 [facility]; [facility] Work Phone: Comment on above: PATIENT NOT FASTINGP ERFORMED BY: CB [facility] Pxruok1226 [address]Dublin [place] [id number] Protein [Mass/Vol] 6.9 g/dL Normal 6.0-8.5 [facility]; [facility] Work Phone: Comment on above: PATIENT NOT FASTINGP ERFORMED BY: CB [facility] Uhhcea4968 [address] RoadDublin [place] [id number] Sodium [Moles/Vol] 142 mmol/L Normal 134-144 [facility]; [facility] Work Phone: Comment on above: PATIENT NOT FASTINGP ERFORMED BY: CB [facility] Wwxjiu6646 [address] RoadDublin [place] [id number] Urea nitrogen [Mass/Vol] 16 mg/dL Normal 6-20 [facility]; [facility] Work Phone: Comment on above: PATIENT NOT FASTINGP ERFORMED BY: INGRID Arielle Pwefpd8926 [facility] [id number] Urea nitrogen/Creatini ne [Mass ratio] 16 mg/mg Normal 9-23 [facility]; [facility] Work Phone: Comment on above: PATIENT NOT FASTINGP ERFORMED BY: [facility]6370 [facility] [id number] RHEUMATOID FACTOR-QUANT (724 70)Ordered By: Band Sawmill Operator on 10-28-2019 Rheumatoid factor Qn [IU]/mL Normal 0.0-13.9 [facility]; [facility] Work Phone: Comment on above: PATIENT NOT FASTINGP ERFORMED BY: INGRID [facility]6370 [facility] [id number] SED RATE ERYTHROCYTE (44917) Ordered By: Band Sawmill Operator on 10-28-2019 ESR (Bld) [Velocity] 9 mm/h Normal 0-32 [facility]; [facility] Work Phone: Comment on above: PATIENT NOT FASTINGP ERFORMED BY: INGRID GillM[facility]6370 [facility] [id number] TSH (34364)Ordered By: Syste m Decaler on 10-28-2019 TSH Qn 5.140 {uIU/mL} Abnormal 0.450-4.500 [facility]; [facility] Work Phone: Comment on above: PATIENT NOT FASTINGP ERFORMED BY: [facility]6370 [facility] [id number] CBC W/AUTO DIFF WBC (24858)O rdered By: Band Sawmill Operator on 10-27-2017 Basophils (Bld) [#/Vol] 0.0 10*3/uL Normal 0.0-0.2 [facility]; [facility] Work Phone: Comment on above: PATIENT NOT FASTINGP ERFORMED BY: INGRID [facility] Ndwhur6[address] RoadCritical Access Hospitalin [place] [id number] Basophils/100 WBC (Bld) 1 % Normal [facility]; [facility] Work Phone: Comment on above: PATIENT NOT FASTINGP ERFORMED BY: INGRID Avila6[address] RoadCritical Access Hospitalin [place] [id number] Eosinophils (Bld) [#/Vol] 0.2 10*3/uL Normal 0.0-0.4 [facility]; [facility] Work Phone: Comment on above: PATIENT NOT FASTINGP ERFORMED BY: [facility] Rhliin9092 [address] RoadNovant Health [facility] [id number] Eosinophils/100 WBC (Bld) 2 % Normal [facility]; [facility] Work Phone: Comment on above: PATIENT NOT FASTINGP ERFORMED BY: [facility] Jyvopb[address] [facility] [id number] Erythrocyte distribution width (RBC) [Ratio] 14.5 % Normal 12.3-15.4 [facility]; [facility] Work Phone: Comment on above: PATIENT NOT FASTINGP ERFORMED BY: Arielle Nygfql[address] [facility] [id number] Hematocrit (Bld) [Volume fraction] 41.7 % Normal 34.0-46.6 [facility]; [facility] Work Phone: Comment on above: PATIENT NOT FASTINGP ERFORMED BY: [facility] Qnslds[address] [facility] [id number] Immature granulocytes (Bld) [#/Vol] 0.0 10*3/uL Normal 0.0-0.1 [facility]; [facility] Work Phone: Comment on above: PATIENT NOT FASTINGP ERFORMED BY: INGRID LabBilly Scrkdl[address] [facility] [id number] Lymphocytes (Bld) [#/Vol] 2.4 10*3/uL Normal 0.7-3.1 [facility]; [facility] Work Phone: Comment on above: PATIENT NOT FASTINGP ERFORMED BY: INGRID [facility] Yubkeb8363 [address] RoadDublin [place] [id number] Lymphocytes/100 WBC (Bld) 28 % Normal [facility]; [facility] Work Phone: Comment on above: PATIENT NOT FASTINGP ERFORMED BY: CB [facility] Pxgebd4814 [address] RoadDublin [place] [id number] MCH (RBC) [Entitic mass] 26.3 pg Abnormal 26.6-33.0 [facility]; [facility] Work Phone: Comment on above: PATIENT NOT FASTINGP ERFORMED BY: CB [facility] Tvpofz7881 [address] RoadDublin [place] [id number] MCHC (RBC) [Mass/Vol] 33.1 g/dL Normal 31.5-35.7 [facility]; [facility] Work Phone: Comment on above: PATIENT NOT FASTINGP ERFORMED BY: CB [facility] Fkoipj5001 [address] RoadDublin [place] [id number] MCV (RBC) [Entitic vol] 80 fL Normal 79-97 [facility]; [facility] Work Phone: Comment on above: PATIENT NOT FASTINGP ERFORMED BY: CB [facility] Jjjgmz9826 [address] RoadDublin [place] [id number] Monocytes (Bld) [#/Vol] 0.5 10*3/uL Normal 0.1-0.9 [facility]; [facility] Work Phone: Comment on above: PATIENT NOT FASTINGP ERFORMED BY: CB [facility] Aazymr9938 [address] RoadDublin [place] [id number] Monocytes/100 WBC (Bld) 6 % Normal [facility]; [facility] Work Phone: Comment on above: PATIENT NOT FASTINGP ERFORMED BY: CB [facility] Xhlfgd6831 [address] RoadDublin [place] [id number] Neutrophils (Bld) [#/Vol] 5.3 10*3/uL Normal 1.4-7.0 [facility]; [facility] Work Phone: Comment on above: PATIENT NOT FASTINGP ERFORMED BY: CB [facility] Zwghvb[address] [facility]in [place] [id number] Neutrophils/100 WBC (Bld) 63 % Normal [facility]; [facility] Work Phone: Comment on above: PATIENT NOT FASTINGP ERFORMED BY: CB [facility] Ouejxr[address] [facility] [place] [id number] Platelets (Bld) [#/Vol] 317 10*3/uL Normal 150-379 [facility]; [facility] Work Phone: Comment on above: PATIENT NOT FASTINGP ERFORMED BY: CB [facility] Clgarn[address] [facility] [id number] RBC (Bld) [#/Vol] 5.24 10*6/uL Normal 3.77-5.28 [facility]pr [facility]; [facility] Work Phone: Comment on above: PATIENT NOT FASTINGP ERFORMED BY: CB [facility] Nbjzpb5270 [facility] [id number] WBC (Bld) [#/Vol] 8.4 10*3/uL Normal 3.4-10.8 Compre [facility]; [facility] Work Phone: Comment on above: PATIENT NOT FASTINGP ERFORMED BY: CB [facility] Ustsia4094 [facility] [id number] CBC W/AUTO DIFF WBC (93432)o n 10-27-2017 Basophils Auto #/vol (Bld) 0.0 {x10E3/uL} Normal 0.0-0.2 [facility] Work Phone: Basophils/100 WBC Auto (Bld) 1 % Normal [facility] Work Phone: Eosinophils Auto #/vol (Bld) 0.2 {x10E3/uL} Normal 0.0-0.4 [facility] Work Phone: Eosinophils/100 WBC Auto (Bld) 2 % Normal [facility] Work Phone: Erythrocyte distribution width Auto Ratio (RBC) 14.5 % Normal 12.3-15.4 [facility] Work Phone: Hematocrit Auto Volume Fraction (Bld) 41.7 % Normal 34.0-46.6 [facility] Work Phone: Hemoglobin mass conc (Bld) 13.8 g/dL Normal 11.1-15.9 [facility] Work Phone: Comment on above: PATIENT NOT FASTINGP ERFORMED BY: [employer] [facility] [id number] Immature granulocytes #/vol (Bld) 0.0 {x10E3/uL} Normal 0.0-0.1 [facility] Work Phone: Immature granulocytes/100 WBC (Bld) 0 % Normal [facility] Work Phone: Comment on above: PATIENT NOT FASTINGP ERFORMED BY: [employer]70 [email or web address] [id number] Lymphocytes Auto #/vol (Bld) 2.4 {x10E3/uL} Normal 0.7-3.1 [facility] Work Phone: Lymphocytes/100 WBC Auto (Bld) 28 % Normal [facility] Work Phone: MCH Auto Entitic mass (RBC) 26.3 pg Abnormal 26.6-33.0 [facility] Work Phone: MCHC Auto mass conc (RBC) 33.1 g/dL Normal 31.5-35.7 [facility] Work Phone: MCV Auto Entitic volume (RBC) 80 fL Normal 79-97 [facility] Work Phone: Monocytes Auto #/vol (Bld) 0.5 {x10E3/uL} Normal 0.1-0.9 [facility] Work Phone: Monocytes/100 WBC Auto (Bld) 6 % Normal [facility] Work Phone: Neutrophils Auto #/vol (Bld) 5.3 {x10E3/uL} Normal 1.4-7.0 [facility] Work Phone: Neutrophils/100 WBC Auto (Bld) 63 % Normal [facility] Work Phone: Platelets Auto #/vol (Bld) 317 {x10E3/uL} Normal 150-379 [facility] Work Phone: RBC Auto #/vol (Bld) 5.24 {x10E6/uL} Normal 3.77-5.28 [facility] Work Phone: WBC Auto #/vol (Bld) 8.4 {x10E3/uL} Normal 3.4-10.8 [facility] Work Phone: IGP, CtNg, rfx Aptima HPV CUon 10-27-2017 C. trachomatis DNA ROLAND+probe Ql (Unsp spec) Negative Normal [facility] Work Phone: Microscopic observation Other stain Nom (Unsp spec) . Normal [facility] Work Phone: N. gonorrhoeae DNA ROLAND+probe Ql (Unsp spec) Negative Normal [facility] Work Phone: Pathology report final diagnosis Narrative SPRCS Normal [facility] Work Phone: Comment on above: NEGATIVE FOR INTRAEP ITHELIAL LESION AND MALIGNANCY.Satisfactory for evaluation. Endocervical and/or squamous metaplasticcells (endocervical component) are present.Areas of partially obscuring inflammtory exudate are present.Z01.411Amy Manjinder Tank Bottom Assembler (ASCP) IGP, CtNg, rfx Aptima HPV ASCU PAPSMR Normal [facility] Work Phone: Comment on above: The Pap smear is a s creening test designed to aid in the detection ofpremalignant and malignant conditions of the uterine cervix. It is not adiagnostic procedure and should not be used as the sole means of detectingcervical cancer. Both false-positive and false-negative reports do occur. .This liquid based ThinPrep(R) pap test was screened with theuse of an image guided system.The HPV DNA reflex criteria were not met with this specimen resulttherefore, no HPV testing was performed. . TSH (23559)on 10-27-2017 Thyrotropin Qn 3.880 {uIU/mL} Normal 0.450-4.500 Compr [facility] Work Phone: Comment on above: PATIENT NOT FASTINGP ERFORMED BY: CB [facility] Jszalq[address] [place] [id number] Thin prep Pap (77454) (no ST D testing)on 10-27-2017 Thin prep Pap (12248) (no STD testing) 21-25 Normal [facility] Work Phone: Comment on above: Source.............C ervix;EndocervixNo. of containers..01 ThinPrep VialPATIENT NOT FASTINGPERFORMED BY: =G [facility] Tozzzqouak582 [facility] W [id number] BY: WB [facility] Fnbzoxhnxk361 [facility] [id number] Information: [id number] Pap IG, Ct-Ng, rfx HPV allon 10-25-2016 C. trachomatis DNA ROLAND+probe Ql (Unsp spec) Positive Abnormal [facility] Work Phone: Comment on above: . Microscopic observation Other stain Nom (Unsp spec) . Normal [facility] Work Phone: N. gonorrhoeae DNA ROLAND+probe Ql (Unsp spec) Negative Normal [facility] Work Phone: Pathology report final diagnosis Narrative SPRCS Normal [facility] Work Phone: Comment on above: NEGATIVE FOR INTRAEP ITHELIAL LESION AND MALIGNANCY.Satisfactory for evaluation. Endocervical and/or squamous metaplasticcells (endocervical component) are present.Z11.51Z01.411Coral Esquivel, Tank Bottom Assembler Pap IG, Ct-Ng, rfx HPV all PAPSMR Normal [facility] Work Phone: Comment on above: The Pap smear is a s creening test designed to aid in the detection ofpremalignant and malignant conditions of the uterine cervix. It is not adiagnostic procedure and should not be used as the sole means of detectingcervical cancer. Both false-positive and false-negative reports do occur. .This liquid based ThinPrep(R) pap test was screened with theuse of an image guided system.The HPV DNA reflex criteria were not met with this specimen resulttherefore, no HPV testing was performed. . URINE BAUTISTA CULTURE-IDENTIFICA TN (47412)on 10-24-2016 Bacteria identified Cx Nom (U) Final report Normal [facility] Work Phone: Comment on above: PATIENT NOT FASTINGP ERFORMED BY: [facility]Mobile BridgeSaint [facility] [id number] Information: SRC: Bacteria identified Cx Nom (U) MUG Normal [facility] Work Phone: Comment on above: Mixed urogenital nabil ra7,000 Colonies/mL PATIENT NOT FASTINGP ERFORMED BY: [facility]Mobile BridgeSaint [facility] [place] [id number] Information: SRC: Urinalysis, Office (61042)Or dered By: Adam Lujan on 10-24-2016 Bilirubin Ql (U) Negative Normal Comprehe nsive Internal Medicine Work Phone: Bilirubin Ql (U) Negative Normal Comprehe nsive Internal Medicine; [facility] Work Phone: Glucose Test strip (U) [Mass/Vol] Negative Normal [facility]; [facility] Work Phone: Glucose Test strip mass conc (U) Negative Normal [facility] Work Phone: Hemoglobin Ql (U) Hemolyzed Small Normal Co mprehensive [facility]; [facility] Work Phone: Hemoglobin Test strip Ql (U) Hemolyzed Small Normal [facility] Work Phone: Ketones Ql (U) Negative Normal Comprehens divya Internal Medicine Work Phone: Ketones Ql (U) Negative Normal Comprehens divya [facility]; [facility] Work Phone: Leukocyte esterase Test strip Ql (U) Moderate Normal [facility] Work Phone: Nitrite Ql (U) Negative Normal Comprehens divya [facility]; [facility] Work Phone: Nitrite Test strip Ql (U) Negative Normal [facility] Work Phone: pH (U) 7.5 [pH] Normal [facility]; [facility] Work Phone: pH Test strip (U) 7.5 [pH] Normal Compre[facility] Work Phone: Protein Ql (U) Negative Normal Comprehens [facility]; [facility] Work Phone: Protein Test strip Ql (U) Negative Normal [facility] Work Phone: Specific gravity Relative Density (U) 1.015 1 Normal [facility] Work Phone: Urobilinogen mass/time (24H U) Normal Normal [facility] Work Phone: LIPID PANEL ([id number])on 2015 Cholesterol in HDL mass conc 59 mg/dL Normal [facility] Work Phone: Comment on above: According to ATP-III Guidelines, HDL-C >59 mg/dL is considered anegative risk factor for CHD. PATIENT WAS FASTINGP ERFORMED BY: [employer] [place] [id number] Cholesterol in LDL mass conc 62 mg/dL Normal 0-99 [facility] Work Phone: Comment on above: PATIENT WAS FASTINGP ERFORMED BY: [employer] [place] [id number] Cholesterol in LDL/Cholesterol in HDL mass ratio 1.1 {ratio_units} Normal 0.0-3.2 [facility] Work Phone: Comment on above: LDL/HDL Ratio Men Wo men 1/2 Avg.Risk 1.0 1.5 Avg.Risk 3.6 3.2 2X Avg.Risk 6.2 5.0 3X Avg.Risk 8.0 6.1 PATIENT WAS FASTINGP ERFORMED BY: [employer] [place] [id number] Cholesterol in VLDL mass conc 11 mg/dL Normal 5-40 [facility] Work Phone: Comment on above: PATIENT WAS FASTINGP ERFORMED BY: INGRID LabDenny HendrixNsnaju6517 [facility] [id number] Cholesterol mass conc 132 mg/dL Normal 100-199 [facility] Work Phone: Comment on above: PATIENT WAS FASTINGP ERFORMED BY: INGRID LabCoandrea Gbehtk3713 [facility] [id number] Triglyceride mass conc 57 mg/dL Normal 0-149 [facility] Work Phone: Comment on above: PATIENT WAS FASTINGP ERFORMED BY: INGRID Hendrixlin6370 [facility] [id number] METABOLIC PANEL, COMPREHENSI VE ([id number])on 10-09-2015 Albumin mass conc 4.4 g/dL Normal 3.5-5.5 Com[facility] Work Phone: Comment on above: PATIENT WAS FASTINGP ERFORMED BY: INGRID Guzmánrp Yywncg3965 [facility] [id number] Information: [id number]; will review at 11/05 appt Albumin/Globulin mass ratio 1.8 {ratio} Normal 1.1-2.5 [facility] Work Phone: Comment on above: PATIENT WAS FASTINGP ERFORMED BY: INGRID LabCoandrea Gjifdv4209 [facility] [id number] Information: [id number]; will review at 11/05 appt ALP enzyme act/vol 56 [iU]/L Normal 39-117 [facility] Work Phone: ALT enzyme act/vol 19 [iU]/L Normal 0-32 [facility] Work Phone: AST enzyme act/vol 29 [iU]/L Normal 0-40 [facility] Work Phone: Bilirubin mass conc 0.6 mg/dL Normal 0.0-1.2 [facility] Work Phone: Comment on above: PATIENT WAS FASTINGP ERFORMED BY: INGRID Amezquita Krlfhu0442 [facility] [id number] Information: [id number]; will review at 3/18 appt Calcium mass conc 9.1 mg/dL Normal 8.7-10.2 Com[facility] Work Phone: Comment on above: PATIENT WAS FASTINGP ERFORMED BY: LabCoLovelace Medical CenterIgbzra7093 [facility] [id number] Information: [id number]; will review at 3/18 appt Chloride molar conc 102 mmol/L Normal 97-108 [facility] Work Phone: Comment on above: PATIENT WAS FASTINGP ERFORMED BY: [facility] Gsncmn7597 [facility] [id number] Information: [id number]; will review at 18 appt CO2 molar conc 21 mmol/L Normal 18-29 Comprehens [facility] Work Phone: Comment on above: PATIENT WAS FASTINGP ERFORMED BY: [facility]6370 [facility] [id number] Information: [id number]; will review at 318 appt Creatinine mass conc 0.78 mg/dL Normal 0.57-1.00 [facility] Work Phone: Comment on above: PATIENT WAS FASTINGP ERFORMED BY: [facility] Fsplzh7771 [facility] [id number] Information: [id number]; will review at 18 appt GFR/1.73 sq M predicted among blacks CKD-EPI vol rate/area (S/P/Bld) 127 mL/min/1.73 Normal [facility] Work Phone: Comment on above: PATIENT WAS FASTINGP ERFORMED BY: LabCo Jxllyc1552 [facility] [id number] Information: [id number]; will review at 318 appt GFR/1.73 sq M predicted among non-blacks CKD-EPI vol rate/area (S/P/Bld) 110 mL/min/1.73 Normal [facility] Work Phone: Comment on above: PATIENT WAS FASTINGP ERFORMED BY: INGRID Alirio Avila6370 [facility] [id number] Information: [id number]; will review at 18 appt Globulin Calculated mass conc (S) 2.4 g/dL Normal 1.5-4.5 [facility] Work Phone: Glucose mass conc 80 mg/dL Normal 65-99 Compre[facility] Work Phone: Comment on above: PATIENT WAS FASTINGP ERFORMED BY: INGRID GillDenny HendrixEmoxxn6538 [facility] [id number] Information: [id number]; will review at 11/05 appt Potassium molar conc 4.1 mmol/L Normal 3.5-5.2 [facility] Work Phone: Comment on above: PATIENT WAS FASTINGP ERFORMED BY: INGRID Guzmán Yskxgl4044 [facility] [id number] Information: [id number]; will review at 318 appt Protein mass conc 6.8 g/dL Normal 6.0-8.5 Com[facility] Work Phone: Comment on above: PATIENT WAS FASTINGP ERFORMED BY: INGRID [facility] Fiaelo8127 [facility] [id number] Information: [id number]; will review at 3/18 appt Sodium molar conc 140 mmol/L Normal 134-144 Compre[facility] Work Phone: Comment on above: PATIENT WAS FASTINGP ERFORMED BY: INGRID GillBilly Nqkcjc1567 [facility] [id number] Information: [id number]; will review at 18 appt Urea nitrogen mass conc 9 mg/dL Normal 6-20 [facility] Work Phone: Comment on above: PATIENT WAS FASTINGP ERFORMED BY: INGRID LabCoandrea Otmjdn9074 [address] RoadDublin [place] [id number] Information: [id number]; will review at 11/05 appt Urea nitrogen/Creatini ne mass ratio 12 mg/mg Normal 8-20 [facility] Work Phone: Comment on above: PATIENT WAS FASTINGP ERFORMED BY: INGRID LabCoandrea HendrixIhzbuo6345 [address] RoadDublin [place] [id number] Information: [id number]; will review at 11/05 appt METABOLIC PANEL, COMPREHENSI VE ([id number])Ordered By: Band Sawmill Operator on 10-09-2015 ALP [Catalytic activity/Vol] 56 U/L Normal 39-117 [facility]; [facility] Work Phone: Comment on above: PATIENT WAS FASTINGP ERFORMED BY: INGRID Hendrixlin6370 [address] RoadDublin [place] [id number] Information: [id number]; will review at 11/05 appt ALT [Catalytic activity/Vol] 19 U/L Normal 0-32 [facility]; [facility] Work Phone: Comment on above: PATIENT WAS FASTINGP ERFORMED BY: INGRID Arielleandrea HendrixYebads1469 [address] RoadDublin [place] [id number] Information: [id number]; will review at 11/05 appt AST [Catalytic activity/Vol] 29 U/L Normal 0-40 [facility]; [facility] Work Phone: Comment on above: PATIENT WAS FASTINGP ERFORMED BY: INGRID [facility] Dfrzkj9509 [address] RoadDublin [place] [id number] Information: [id number]; will review at 11/05 appt Globulin (S) [Mass/Vol] 2.4 g/dL Normal 1.5-4.5 [facility]; [facility] Work Phone: Comment on above: PATIENT WAS FASTINGP ERFORMED BY: INGRID [facility] Jbxxzl4548 [address] RoadDublin [place] [id number] Information: [id number]; will review at 11/05 appt Vital Signs Date Time Vital Sign Value Performing Clinician Facility 04-14-2023 10:040 Body height 165.1 cm SASKIA Rivero LPN [facility]; [facility] Work Phone: 04-14-2023 10:040 Body mass index (BMI) [Ratio] 35.94 kg/m2 SASKIA Rivero LPN [facility]; [facility] Work Phone: 04-14-2023 10:040 Body surface area Derived from formula 2.04 m2 SASKIA Rivero LPN [facility]; [facility] Work Phone: 04-14-2023 10:040 Body temperature 97.9 [degF] SASKIA Rivero LPN [facility]; [facility] Work Phone: Comment on above: Method: Temporal 04-14-2023 10:040 Body weight 97.98 kg SASKIA Rivero LPN [facility]; [facility] Work Phone: 04-14-2023 10:040 Diastolic blood pressure 80 mm[Hg] SASKIA Rivero LPN [facility]; [facility] Work Phone: Comment on above: Patient Position: Sitting; Cuff Location : Left Arm; Cuff Size: Large 04-14-2023 10:210400 Heart rate 68 /min SASKIA Rivero LPN [facility]; [facility] Work Phone: Comment on above: Pattern: Regular 04-14-2023 10:21-0400 Respiratory rate 18 /min SASKIA Rivero LPN [facility]; [facility] Work Phone: Comment on above: Pattern: Unlabored 04-14-2023 10:21-0400 SaO2% (BldA) [Mass fraction] 98 % SASKIA Rivero LPN [facility]; [facility] Work Phone: Comment on above: Room air 04-14-2023 10:21-0400 Systolic blood pressure 120 mm[Hg] SASKIA Rivero LPN [facility]; [facility] Work Phone: Comment on above: Patient Position: Sitting; Cuff Location : Left Arm; Cuff Size: Large 03-05-2021 09:50-0400 Body height 165.1 cm Talya Marin [facility]; [facility] Work Phone: 03-05-2021 09:50-0400 Body mass index (BMI) [Ratio] 38.96 kg/m2 Talya Marin [facility]; [facility] Work Phone: 03-05-2021 09:50-0400 Body surface area Derived from formula 2.12 m2 Talya Marin [facility]; [facility] Work Phone: 03-05-2021 09:50-0400 Body temperature 97.3 [degF] Talya Marin [facility]; [facility] Work Phone: Comment on above: Method: Temporal 03-05-2021 09:50-0400 Body weight 106.2 kg Talya Marin [facility]; [facility] Work Phone: 03-05-2021 09:50-0400 Diastolic blood pressure 70 mm[Hg] Talya Marin [facility]; [facility] Work Phone: Comment on above: Patient Position: Sitting; Cuff Location : Left Arm; Cuff Size: Standard 03-05-2021 09:50-0400 Heart rate 71 /min Talya Marin [facility]; [facility] Work Phone: Comment on above: Pattern: Regular 03-05-2021 09:50-0400 Respiratory rate 16 /min Talya Marin [facility] Com[facility]; [facility] Work Phone: Comment on above: Pattern: Unlabored 03-05-2021 09:50-0400 SaO2% (BldA) [Mass fraction] 98 % Talya Marin [facility]; [facility] Work Phone: Comment on above: Room air 03-05-2021 09:50-0400 Systolic blood pressure 98 mm[Hg] Talya Marin CMA [facility]; [facility] Work Phone: Comment on above: Patient Position: Sitting; Cuff Location : Left Arm; Cuff Size: Standard 11-07-2019 11:28-0400 Body height 165.1 cm Talya Marin CMA [facility]; [facility] Work Phone: 11-07-2019 11:28-0400 Body mass index (BMI) [Ratio] 40.12 kg/m2 Talya Marin CMA [facility]; [facility] Work Phone: 11-07-2019 11:280400 Body surface area Derived from formula 2.14 m2 Talya Marin CMA [facility]; [facility] Work Phone: 11-07-2019 11:28-0400 Body temperature 96.7 [degF] Talya Marin CMA [facility]; [facility] Work Phone: Comment on above: Method: Temporal 11-07-2019 11:280400 Body weight 109.37 kg Talya Marin CMA [facility]; [facility] Work Phone: 11-07-2019 11:28-0400 Diastolic blood pressure 79 mm[Hg] Talya Mrain CMA [facility]; [facility] Work Phone: Comment on above: Patient Position: Sitting; Cuff Location : Left Arm; Cuff Size: Standard 11-07-2019 11:28-0400 Heart rate 73 /min Talya Marin CMA [facility]; [facility] Work Phone: Comment on above: Pattern: Regular 11-07-2019 11:28-0400 Respiratory rate 18 /min Talya Marin CMA [facility]; [facility] Work Phone: Comment on above: Pattern: Unlabored 11-07-2019 11:28-0400 SaO2% (BldA) [Mass fraction] 97 % Talya Marin [facility]; [facility] Work Phone: Comment on above: Room air 11-07-2019 11:28-0400 Systolic blood pressure 103 mm[Hg] Talya Marin CMA [facility]; [facility] Work Phone: Comment on above: Patient Position: Sitting; Cuff Location : Left Arm; Cuff Size: Standard 10-28-2019 15:040 Body height 165.1 cm Talya Marin CMA [facility]; [facility] Work Phone: 10-28-2019 15:040 Body mass index (BMI) [Ratio] 39.79 kg/m2 Talya Marin CMA [facility]; [facility] Work Phone: 10-28-2019 15:040 Body surface area Derived from formula 2.13 m2 Talya Marin CMA [facility]; [facility] Work Phone: 10-28-2019 15:040 Body temperature 96.9 [degF] Talya Marin CMA [facility]; [facility] Work Phone: Comment on above: Method: Temporal 10-28-2019 15:040 Body weight 108.47 kg Talya Marin CMA [facility]; [facility] Work Phone: 10-28-2019 15:040 Diastolic blood pressure 78 mm[Hg] Talya Marin CMA [facility]; [facility] Work Phone: Comment on above: Patient Position: Sitting; Cuff Location : Left Arm; Cuff Size: Standard 10-28-2019 15:040 Heart rate 66 /min Talya Marin CMA [facility]; [facility] Work Phone: Comment on above: Pattern: Regular 10-28-2019 15:040 Respiratory rate 19 /min Talya Marin CMA [facility]; [facility] Work Phone: Comment on above: Pattern: Unlabored 10-28-2019 15:21-0400 SaO2% (BldA) [Mass fraction] 98 % Talya Marin RECORD FILING CLERK [facility]; [facility] Work Phone: Comment on above: Room air 10-28-2019 15:21-0400 Systolic blood pressure 106 mm[Hg] Talya Marin WILFREDO [facility]; [facility] Work Phone: Comment on above: Patient Position: Sitting; Cuff Location : Left Arm; Cuff Size: Standard 10-27-2017 13:11-0500 BMI (Body Mass Index) 35.96 kg/m2 Holly Cuellar RN [facility] Work Phone: 10-27-2017 13:11-0500 Body weight 98.03 kg Holly Cuellar RN [facility]; [facility] Work Phone: 10-27-2017 13:11-0500 BP Diastolic 80 mm[Hg] Holly Cuellar RN [facility] Work Phone: Comment on above: Patient Position: Sitting; Cuff Location : Left Arm; Cuff Size: Standard 10-27-2017 13:11-0500 BP Systolic 122 mm[Hg] Holly Cuellar RN [facility] Work Phone: Comment on above: Patient Position: Sitting; Cuff Location : Left Arm; Cuff Size: Standard 10-27-2017 13:11-0500 BSA (Body Surface Area) 2.04 m2 Holly Cuellar RN [facility] Work Phone: 10-27-2017 13:11-0500 Height 165.1 cm Holly Cuellar RN [facility] Work Phone: 10-27-2017 13:11-0500 Pulse (Heart Rate) 73 /min Holly Cuellar RN Comprehens [facility] Work Phone: Comment on above: Pattern: Regular 10-27-2017 13:11-0500 Pulse Oximetry 97 % Leah Madrigal [facility] Work Phone: Comment on above: Room air 10-27-2017 13:11-0500 Respiratory Rate 18 /min Holly Cuellar RN [facility] Work Phone: Comment on above: Pattern: Unlabored 10-27-2017 13:11-0500 SaO2% (BldA) [Mass fraction] 97 % Holly Cuellar RN [facility]; [facility] Work Phone: Comment on above: Room air 10-27-2017 13:11-0500 Weight 98.03 kg Leah Madrigal [facility] Work Phone: 10-24-2016 14:00-0500 BMI (Body Mass Index) 34.61 kg/m2 [facility] Work Phone: 10-24-2016 14:00-0500 Body Temperature 98 [degF] [facility] Work Phone: 10-24-2016 14:00-0500 Body weight 94.35 kg [facility]; [facility] Work Phone: 10-24-2016 14:00-0500 BP Diastolic 68 mm[Hg] [facility] Work Phone: Comment on above: Patient Position: Sitting; Cuff Location : Left Arm; Cuff Size: Standard 10-24-2016 14:00-0500 BP Systolic 118 mm[Hg] [facility] Work Phone: Comment on above: Patient Position: Sitting; Cuff Location : Left Arm; Cuff Size: Standard 10-24-2016 14:00-0500 BSA (Body Surface Area) 2.01 m2 [facility] Work Phone: 10-24-2016 14:00-0500 Height 165.1 cm [facility] Work Phone: 10-24-2016 14:00-0500 Pulse (Heart Rate) 80 /min [facility] Work Phone: Comment on above: Pattern: Regular 10-24-2016 14:00-0500 Pulse Oximetry 98 % Leah Madrigal [facility] Work Phone: Comment on above: Room air 10-24-2016 14:00-0500 Respiratory Rate 16 /min [facility] Work Phone: Comment on above: Pattern: Unlabored 10-24-2016 14:00-0500 SaO2% (BldA) [Mass fraction] 98 % [facility]; [facility] Work Phone: Comment on above: Room air 10-24-2016 14:00-0500 Weight 94.35 kg eLah Madrigal [facility] Work Phone: 06-03-2016 13:45-0400 BMI (Body Mass Index) 32.45 kg/m2 Holly Cuellar RN [facility] Work Phone: 06-03-2016 13:45-0400 Body weight 88.45 kg Holly Cuellar RN [facility]; [facility] Work Phone: 06-03-2016 13:45-0400 BP Diastolic 80 mm[Hg] Holly Cuellar RN [facility] Work Phone: Comment on above: Patient Position: Sitting; Cuff Location : Left Arm; Cuff Size: Large 06-03-2016 13:45-0400 BP Systolic 128 mm[Hg] Holly Cuellar RN [facility] Work Phone: Comment on above: Patient Position: Sitting; Cuff Location : Left Arm; Cuff Size: Large 06-03-2016 13:45-0400 BSA (Body Surface Area) 1.96 m2 Holly Cuellar RN [facility] Work Phone: 06-03-2016 13:45-0400 Height 165.1 cm Holly Cuellar RN [facility] Work Phone: 06-03-2016 13:45-0400 Pulse (Heart Rate) 66 /min Holly Cuellar RN Comprehens [facility] Work Phone: Comment on above: Pattern: Regular 06-03-2016 13:45-0400 Pulse Oximetry 98 % Leah Madrigal [facility] Work Phone: Comment on above: Room air 06-03-2016 13:45-0400 Respiratory Rate 18 /min Holly Cuellar RN Com[facility] Work Phone: Comment on above: Pattern: Unlabored 06-03-2016 13:45-0400 SaO2% (BldA) [Mass fraction] 98 % Holly Cuellar RN [facility]; [facility] Work Phone: Comment on above: Room air 06-03-2016 13:45-0400 Weight 88.45 kg Leah Madrigal [facility] Work Phone: 10-09-2015 10:28-0500 BMI (Body Mass Index) 29.79 kg/m2 Katt Katie [facility] Work Phone: 10-09-2015 10:28-0500 Body Temperature 97.8 [degF] Katt Katie [facility] Work Phone: Comment on above: Method: Temporal 10-09-2015 10:28-0500 Body weight 81.19 kg Katt Katie [facility]; [facility] Work Phone: 10-09-2015 10:28-0500 BP Diastolic 82 mm[Hg] Katt Katie [facility] Work Phone: Comment on above: Patient Position: Sitting; Cuff Location : Right Arm; Cuff Size: Standard 10-09-2015 10:28-0500 BP Systolic 114 mm[Hg] Katt Wilson [facility] Work Phone: Comment on above: Patient Position: Sitting; Cuff Location : Right Arm; Cuff Size: Standard 10-09-2015 10:28-0500 BSA (Body Surface Area) 1.89 m2 Katt Wilson [facility] Work Phone: 10-09-2015 10:28-0500 Height 165.1 cm Katt Wilson [facility] Work Phone: 10-09-2015 10:28-0500 Pulse (Heart Rate) 60 /min Katt Wilson [facility] Work Phone: Comment on above: Pattern: Regular 10-09-2015 10:28-0500 Pulse Oximetry 98 % Leah Madrigal [facility] Work Phone: Comment on above: Room air 10-09-2015 10:28-0500 Respiratory Rate 15 /min Katt Wilson [facility] Work Phone: Comment on above: Pattern: Unlabored 10-09-2015 10:28-0500 SaO2% (BldA) [Mass fraction] 98 % Katt Wilson [facility]; [facility] Work Phone: Comment on above: Room air 10-09-2015 10:28-0500 Weight 81.19 kg Leah Madrigal [facility] Work Phone: 08-18-2015 14:33-0500 BMI (Body Mass Index) 31.28 kg/m2 Jaqui Slarb [employer]IP ENGINES OPERATING ENGINEER [facility] Work Phone: 08-18-2015 14:33-0500 Body Temperature 97 [degF] Jaqui Slarb [employer]IP ENGINES OPERATING ENGINEER [facility] Work Phone: 08-18-2015 14:33-0500 Body weight 85.28 kg Jaqui Slarb SHIP ENGINES OPERATING ENGINEER [facility]; [facility] Work Phone: 08-18-2015 14:33-0500 BP Diastolic 72 mm[Hg] Jaqui Slarb SHIP ENGINES OPERATING ENGINEER [facility] Work Phone: Comment on above: Patient Position: Sitting; Cuff Location : Left Arm; Cuff Size: Standard 08-18-2015 14:33-0500 BP Systolic 106 mm[Hg] Jaqui Slarb SHIP ENGINES OPERATING ENGINEER [facility] Work Phone: Comment on above: Patient Position: Sitting; Cuff Location : Left Arm; Cuff Size: Standard 08-18-2015 14:33-0500 BSA (Body Surface Area) 1.93 m2 Jaqui Slarb SHIP ENGINES OPERATING ENGINEER [facility] Work Phone: 08-18-2015 14:33-0500 Height 165.1 cm Jaqui Slarb SHIP ENGINES OPERATING ENGINEER [facility] Work Phone: 08-18-2015 14:33-0500 Pulse (Heart Rate) 84 /min Jaqui Slarb SHIP ENGINES OPERATING ENGINEER [facility] Work Phone: Comment on above: Pattern: Regular 08-18-2015 14:33-0500 Pulse Oximetry 98 % Leah Madrigal [facility] Work Phone: Comment on above: Room air 08-18-2015 14:33-0500 Respiratory Rate 16 /min Jaqui Slarb [employer]IP ENGINES OPERATING ENGINEER [facility] Work Phone: Comment on above: Pattern: Unlabored 08-18-2015 14:33-0500 SaO2% (BldA) [Mass fraction] 98 % Jaqui Forte LPN [facility]; [facility] Work Phone: Comment on above: Room air 08-18-2015 14:33-0500 Weight 85.28 kg Leah Madrigal [facility] Work Phone: 06-09-2015 14:30-0400 BMI (Body Mass Index) 30.45 kg/m2 Katt Wilson [facility] Work Phone: 06-09-2015 14:30-0400 Body Temperature 98.3 [degF] Katt Wilson [facility] Work Phone: Comment on above: Method: Temporal 06-09-2015 14:30-0400 Body weight 83.01 kg Katt Wilson [facility]; [facility] Work Phone: 06-09-2015 14:30-0400 BP Diastolic 72 mm[Hg] Katt Wilson [facility] Work Phone: Comment on above: Patient Position: Sitting; Cuff Location : Left Arm; Cuff Size: Standard 06-09-2015 14:30-0400 BP Systolic 114 mm[Hg] Katt Wilson [facility] Work Phone: Comment on above: Patient Position: Sitting; Cuff Location : Left Arm; Cuff Size: Standard 06-09-2015 14:30-0400 BSA (Body Surface Area) 1.9 m2 Katt Wilson [facility] Work Phone: 06-09-2015 14:30-0400 Height 165.1 cm Katt Wilson [facility] Work Phone: 06-09-2015 14:30-0400 Pulse (Heart Rate) 60 /min [facility] Work Phone: Comment on above: Pattern: Regular 06-09-2015 14:30-0400 Pulse Oximetry 98 % Leah Madrigal [facility] Work Phone: Comment on above: Room air 06-09-2015 14:30-0400 Respiratory Rate 16 /min Katt Katie [facility] Work Phone: Comment on above: Pattern: Unlabored 06-09-2015 14:30-0400 SaO2% (BldA) [Mass fraction] 98 % Katt Katie [facility]; [facility] Work Phone: Comment on above: Room air 06-09-2015 14:30-0400 Weight 83.01 kg Leah Sifuenteson [facility] Work Phone: Encounters Encounter Date Encounter Type Care Provider Facility Start: 04-14-2023 End: 04-14-2023 Patient encounter status SASKIA Rivero LPN [facility]; [facility] Work Phone: Start: 04-14-2023 End: 04-14-2023 Periodic preventive med est patient 18-39 yrs Leah Kaitlin DO Work Phone: [facility] Start: 04-14-2023 Review Leahariana Sifuenteso n DO Work Phone: [facility] Start: 03-08-2021 End: 03-08-2021 Lab Order Leah Kaitlin DO Work Phone: [facility] Start: 03-05-2021 End: 03-05-2021 Office outpatient visit 15 minutes Leah Kaitlin DO Work Phone: [facility] Start: 11-07-2019 End: 11-07-2019 Office outpatient visit 15 minutes Leah Kaitlin DO Work Phone: [facility] Start: 10-28-2019 End: 10-28-2019 Office outpatient visit 40 minutes Leah Kaitlin DO Work Phone: [facility] Start: 11-06-2018 Patient encounter procedure Leah Kaitlin [facility] Start: 10-27-2017 End: 10-27-2017 Patient encounter status Leah Kaitlin DO Work Phone: [facility] Start: 10-27-2017 End: 10-27-2017 Periodic preventive med est patient 18-39 yrs Leah Kaitlin [facility] Start: 10-28-2016 End: 10-28-2016 Postop follow up visit related to original px Leah Madrigal [facility] Start: 10-24-2016 End: 10-24-2016 Patient encounter status Leah Madrigal DO Work Phone: [facility] Start: 10-24-2016 End: 10-24-2016 Periodic preventive med est patient 18-39 yrs Leah Madrigal [facility] Start: 06-03-2016 End: 06-03-2016 Office outpatient visit 25 minutes Leah Madrigal [facility] Start: 10-09-2015 End: 10-11-2015 Office outpatient visit 15 minutes Leah Madrigal [facility] Start: 08-18-2015 End: 08-18-2015 Office outpatient visit 15 minutes Leah Madrigal [facility] Start: 06-09-2015 End: 06-09-2015 Office outpatient visit 25 minutes Leah Madrigal [facility] Start: 06-09-2015 End: 06-09-2015 Patient encounter procedure Leah Madrigal DO Work Phone: [facility] End: 10-09-2015 Patient encounter procedure Katt Wilson [facility]; [facility] Work Phone: Comment on above: GAVE gardasil info t alked about hpv and pap in next 1-2 years Patient encounter status Talya Marin CMA [facility]; [facility] Work Phone: Procedures Date Procedure Procedure Detail Performing Clinician Start: 12-21-2022 End: 12-21-2022 B2B Account Executive Office Visit Report Procedure Note: See Note; NOTES: [facility] [address] [place] [address] OFFICE VISIT Date of Service: 12/21/22 MR#: [id number] Acct: [id number] Name: FABI [place] Rep #: [id number] : 1995 Provider: UGO serrano Age/Sex: 27/F Location: [facility] [place] Status: Signed Intake Vital Signs 11/17/21 15:23 12/21/22 10:40 12/21/22 10:46 Height 5 ft 7 in 5 ft 7 in 5 ft 7 in Weight: 241 lb 6 oz BMI 37.8 BP 116/78 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) Chief Complaint: Annual Hand Lacer Required: No Is patient in pain?: No Allergies No Known Allergies Allergy (Verified 12/21/22 10:40) Medications levothyroxine 25 mcg tablet (Synthroid) 25 mcg PO DAILY 08/03/21 [History Confirmed 12/21/22] cyclobenzaprine 10 mg tablet 10 mg PO TID PRN muscle spasm #30 tabs 11/17/21 [Rx Confirmed 12/21/22] ibuprofen 600 mg tablet 600 mg PO TID #30 tabs 11/17/21 [Rx Confirmed 12/21/22] norgestimate 0.25 mg-ethinyl estradiol 35 mcg tablet (Sprintec (28)) 1 tab PO QDAY #84 tabs 12/21/22 [Rx Confirmed 12/21/22] Is last menstrual period known: Yes Last Menstrual Period: 12/10/22 Post menopausal: No Patient : No : No [facility] Medical History Anxiety COVID-19 vaccine series completed Depression Hypothyroidism Lumbar strain Migraines Surgical History History of foot surgery Family History Grandmother Breast cancer Cervical cancer Aunt Breast cancer Mother Hypertension Migraine Father Hypertension Grandfather Afib Prostate cancer Unknown Diabetes Renal failure Social History household members: significant other current occupational status: employed 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 Found out 6 months ago boyfriend was unfaithful. She had not been using contraception. Not currently sexually active but would like to restart sprintec which had worked well for her previously Last PAP: 2020 History of abnormal PAP: no Last mammogram: age 40 Other preventative health care screenings: Kaitlin Female Reproductive History Last Menstrual Period: 12/10/22 Cycle Length: 21-35 Control Method: OCP Questions: metorrhagia: No and sexually active: No ROS Const Constitutional: Denies fatigue, weight gain or weight loss Cardio Card: Denies chest pain Resp Resp: Denies cough or dyspnea on exertion GI GI: Denies abdominal pain, bloating, change in stool character, constipation or vomiting : Reports as per HPI; Denies difficulty voiding, pelvic pain, urinary frequency, urinary incontinence, urinary urgency, vaginal discharge or vaginal pruritus Exam Const General: cooperative, healthy appearing, no acute distress and well developed Orientation: alert, oriented to person and oriented to place HENMT Head: normal to inspection Neck Neck: normal visual inspection Thyroid: thyroid normal Lymphatic: no lymphadenopathy noted Chest Breast inspection: normal inspection of the breasts and normal inspection of the axillae Breast palpation: normal palpation of the breasts, normal palpation of the axillae and no axillary lymphadenopathy Resp Effort Inspection: normal respiratory effort GI Palpation: soft, no masses and nontender Rectal Exam: deferred External Female Exam: normal external appearance and normal appearance of the urethra Urethra: normal appearance of the urethra and normal palpation Speculum Exam - Vagina: normal appearance of the vagina and normal vaginal discharge Speculum Exam - Cervix: normal appearance of the cervix Bimanual Exam- Vagina Uterus: normal bimanual exam, uterine size normal, uterine shape normal and non-tender Bimanual Exam- Adnexa, other: normal adnexae, no masses, normal and non-tender Pelvic Support: normal Neuro General: patient alert and patient oriented x3 Psych Affect: normal affect Coding Level of Care Code Off vis,est,prev 18-39yrs Diagnoses Encounter for routine gynecological examination Z01.419 Possible exposure to STD Z20.2 Oral contraception initial prescription Z30.011 Assessment and Plan Assessment and Plan (1) Encounter for routine gynecological examination: (2) Possible exposure to STD: (3) Oral contraception initial prescription: Orders: Orders POC Trichomonas Vaginalis Today Z11.3 - Encounter for screening for infections with a predominantly sexual mode of transmission HSV 1 2 IgG Today Z20.2 - Contact with and (suspected) exposure to infections with a predominantly sexual mode of transmission HIV - [facility] Today Z20.2 - Contact with and (suspected) exposure to infections with a predominantly sexual mode of transmission Syphilis Antibodies Today Z20.2 - Contact with and (suspected) exposure to infections with a predominantly sexual mode of transmission Hepatitis C Antibody Today Z20.2 - Contact with and (suspected) exposure to infections with a predominantly sexual mode of transmission Chlamydia/GC ROLAND aptima Today Z20.2 - Contact with and (suspected) exposure to infections with a predominantly sexual mode of transmission Medications: New norgestimate-ethinyl estradiol 0.25-35 mg-mcg (Sprintec (28)) 1 TAB PO QDAY 84 tabs 4RF Plan Completed breast and pelvic exam Reviewed diet and exercise Pap 2020 See STD labs and call positive breast self exam encouraged monthly Contraception Discussed use, benefits, risks and side effects of sprintec. Instruct on Monday start and reviewed use of condoms. Written information given. RTO 1 year, prn with problems Vani Steiner CAR REPAIR SUPERVISOR 12/21/22 1058 <Electronically signed by Vani Steiner NP FREELANCE ART DIRECTOR-C> Date Vani Steiner NP FREELANCE ART DIRECTOR-C Cosigner Signature: Date (if applicable) CC: Leah Madrigal DO Work Phone: Start: 10-26-2016 End: 10-26-2016 Breast Limited Unilateral Comments: See Note; NOTES: [facility] Imaging Services [address] [place] [address] Verdasly 4d Breast Limited Unilateral MR#: [id number] Acct: [id number] Name: FABI [place] Rep #: [id number] : 1995 F 21 From: Charlette La MD PCP: Mat MD,Seema Status: REG CLI Study: Breast Limited Unilateral Date of Exam: 10/26/16 Exam# [id number] Ordering Dr: Leah Madrigal DO STUDY: ULTRASOUND BREAST - RIGHT REASON FOR EXAM: Female, 21 years old. RT BREAST LUMP TECHNIQUE: Axial and longitudinal images of the RIGHT breast were performed with a high resolution ultrasound transducer. COMPARISON: None. FINDINGS: RIGHT Breast: There is no evidence of mass or cyst in the area of palpable abnormality. The palpable abnormality may represent a fibrous ridge there is not adequately visualized. US/Breast Limited Unilateral IMPRESSION: No evidence of neoplasm. ASSESSMENT CATEGORY: BIRADS Category 2: Benign. A letter regarding these results will be sent to the patient by the facility within 30 days. Electronically Signed: Charlette aL MD at 12:35 EST Tel , Service support [phone], CC: Leah Madrigal DO; Seema Rivero MD Computer Programming Supervisor: Signed Leah Madrigal Work Phone: Foot Surgery - Right Holly morrison Comment on above: screw put in 5th met atarsal Operative procedure on foot Talya Marin RECORD FILING CLERK Comment on above: screw put in 5th met atarsal Operative procedure on foot SASKIA Rivero SHIP ENGINES OPERATING ENGINEER Comment on above: screw put in 5th met atarsal Plan of Treatment Date Care Activity Detail Author Start: 04-14-2023 Procedure Education Eprescribed prescriptions (G8553) [facility] Work Phone: Start: 03-08-2021 C-reactive protein C-REACTIVE PROTEIN (22151) [facility]; [facility] Work Phone: Start: 03-05-2021 Procedure Education Eprescribed prescriptions (G8553) [facility]; [facility] Work Phone: Start: 11-07-2019 Procedure Education Eprescribed prescriptions (G8553) [facility]; [facility] Work Phone: Start: 11-07-2019 Provider Instructions for Treatment [facility]; [facility] Work Phone: Start: 11-07-2019 Assay of thyroid stimulating hormone tsh TSH (07556) [facility]; [facility] Work Phone: Start: 11-07-2019 Assay of free thyroxine T4, FREE (THYROXINE) (99846) [facility]; [facility] Work Phone: Start: 11-07-2019 Assay of triiodothyronine t3 free T3, FREE (TRIDOTHYRONINE) (72563) [facility]; [facility] Work Phone: Start: 10-28-2019 Procedure Education Eprescribed prescriptions (G8553) [facility]; [facility] Work Phone: Start: 10-28-2019 Provider Instructions for Treatment Follow up - Make appt after diagnostic tests [facility]; [facility] Work Phone: Start: 10-27-2017 Provider Instructions for Treatment [facility]; [facility] Work Phone: Start: 10-24-2016 Iadna neisseria gonorrhoeae amplified probe tq NEISSERIA (95544) (done by thin prep) [facility] Work Phone: Start: 10-24-2016 Iadna chlamydia trachomatis amplified probe tq CHLAMYDIA (68119) (done by thin prep) [facility] Work Phone: Start: 10-24-2016 Hpv, dna, amp probe HPV automatic (08839) [facility] Work Phone: Start: 10-24-2016 Cytp cerv/vag auto thin layer prep mnl screen Thin prep Pap (97221) (no STD testing) [facility] Work Phone: Start: 10-24-2016 Provider Instructions for Treatment [facility]; [facility] Work Phone: Start: 10-09-2015 Patient Education Anxiety: anxiety [facility]; [facility] Work Phone: Start: 10-09-2015 Procedure Education Eprescribed prescriptions (G8553) [facility]; [facility] Work Phone: Start: 10-09-2015 Provider Instructions for Treatment *Antidepressant Usage [facility]; [facility] Work Phone: Start: 08-18-2015 Provider Instructions for Treatment Follow up if no improvement or if symptoms worsen [facility]; [facility] Work Phone: Start: 06-09-2015 Procedure Education Eprescribed prescriptions (G8553) [facility]; [facility] Work Phone: [facility] Work Phone: [facility] Work Phone: [facility] Work Phone: [facility] Work Phone: [facility] Work Phone: [facility] Work Phone: Anxiety and depr ession : Anxiety: anxiety [facility] Work Phone: [facility] Work Phone: [facility]; [facility] Work Phone: Payers Date Payer Category Payer Unknown [id number] 2014 Private Health Insurance [id number] 1995 Unknown [id number] Unknown Social History Date Type Detail Facility Caffeine Use Never smoker [facility] Work Phone: Tobacco use: Never smoker. [facility] Work Phone: Tobacco use: Tobacco use: [facility]; [facility] Work Phone: Instructions Note Date & Type Note Facility Instructions Name Patient Instructions Indication:BMI 38.0-38.9,adult Start:05-Mar-20 Instruction Type:Provider Instructions for Treatment How to Access Health Information Online using Patient Portal and 3rd Democrat Apps Indication:BMI 38.0-38.9,adult Start:05-Mar-20 Instruction Type:Patient Education How to access health information online Indication:BMI 40.0-44.9, adult Start:07-Nov-19 Instruction Type:Patient Education How to access health information online - Detail Indication:BMI 40.0-44.9, adult Start:07-Nov-19 Instruction Type:Patient Education Patient Instructions Indication:BMI 40.0-44.9, adult Start:07-Nov-19 Instruction Type:Provider Instructions for Treatment How to access health information online Indication:Non-smoker Start: 0 Instruction Type:Patient Education How to access health information online - Detail Indication:Non-smoker Start: 0 Instruction Type:Patient Education Patient Instructions Indication:Non-smoker Start: 0 Instruction Type:Provider Instructions for Treatment How to access health information online Indication:Encounter for gynecological examination with abnormal finding Start: 8 Instruction Type:Patient Education How to access health information online - Detail Indication:Encounter for gynecological examination with abnormal finding Start: Instruction Type:Patient Education Patient Instructions Indication:Encounter for gynecological examination with abnormal finding Start: Instruction Type:Provider Instructions for Treatment How to access health information online Indication:Anxiety and depression Start:03-Jun-20 Instruction Type:Patient Education How to access health information online - Detail Indication:Anxiety and depression Start:03-Jun-20 Instruction Type:Patient Education Patient Instructions Indication:Anxiety and depression Start:03-Jun-20 Instruction Type:Provider Instructions for Treatment How to access health information online Indication:Anxiety and depression Start:09-Oct-19 Instruction Type:Patient Education How to access health information online - Detail Indication:Anxiety and depression Start:09-Oct-19 Instruction Type:Patient Education Patient Instructions Indication:Anxiety and depression Start:09-Oct-19 Instruction Type:Provider Instructions for Treatment Patient Instructions Indication:Need for prophylactic vaccination and inoculation against influenza (Renamed from Need for immunization against influenza) Start:09-Jun-20 Instruction Type:Provider Instructions for Treatment [facility]; [facility] Work Phone: Instructions Note Date & Type Note Facility Instructions Name Patient Instructions Indication:Non-smoker Start:14-Apr-20 Instruction Type:Provider Instructions for Treatment How to Access Health Information Online using Patient Portal and 3rd Democrat Apps Indication:Non-smoker Start:14-Apr-20 Instruction Type:Patient Education Patient Instructions Indication:BMI 38.0-38.9,adult Start:05-Mar-20 Instruction Type:Provider Instructions for Treatment How to Access Health Information Online using Patient Portal and 3rd Democrat Apps Indication:BMI 38.0-38.9,adult Start:05-Mar-20 Instruction Type:Patient Education How to access health information online Indication:BMI 40.0-44.9, adult Start:07-Nov-19 Instruction Type:Patient Education How to access health information online - Detail Indication:BMI 40.0-44.9, adult Start:07-Nov-19 Instruction Type:Patient Education Patient Instructions Indication:BMI 40.0-44.9, adult Start:07-Nov-19 Instruction Type:Provider Instructions for Treatment How to access health information online Indication:Non-smoker Start: 0 Instruction Type:Patient Education How to access health information online - Detail Indication:Non-smoker Start: 0 Instruction Type:Patient Education Patient Instructions Indication:Non-smoker Start: 0 Instruction Type:Provider Instructions for Treatment How to access health information online Indication:Encounter for gynecological examination with abnormal finding Start: Instruction Type:Patient Education How to access health information online - Detail Indication:Encounter for gynecological examination with abnormal finding Start: 8 Instruction Type:Patient Education Patient Instructions Indication:Encounter for gynecological examination with abnormal finding Start: 8 Instruction Type:Provider Instructions for Treatment How to access health information online Indication:Anxiety and depression Start:03-Jun-20 Instruction Type:Patient Education How to access health information online - Detail Indication:Anxiety and depression Start:03-Jun-20 Instruction Type:Patient Education Patient Instructions Indication:Anxiety and depression Start:03-Jun-20 Instruction Type:Provider Instructions for Treatment How to access health information online Indication:Anxiety and depression Start:09-Oct-19 Instruction Type:Patient Education How to access health information online - Detail Indication:Anxiety and depression Start:09-Oct-19 Instruction Type:Patient Education Patient Instructions Indication:Anxiety and depression Start:09-Oct-19 Instruction Type:Provider Instructions for Treatment Patient Instructions Indication:Need for prophylactic vaccination and inoculation against influenza (Renamed from Need for immunization against influenza) Start:09-Jun-20 Instruction Type:Provider Instructions for Treatment [facility]; [facility] Work Phone: Instructions Note Date & Type Note Facility Instructions Name Patient Instructions Indication:Non-smoker Start:14-Apr-20 Instruction Type:Provider Instructions for Treatment How to Access Health Information Online using Patient Portal and 3[employer] Democrat Apps Indication:Non-smoker Start:14-Apr-20 Instruction Type:Patient Education Patient Instructions Indication:BMI 38.0-38.9,adult Start:05-Mar-20 Instruction Type:Provider Instructions for Treatment How to Access Health Information Online using Patient Portal and 3[employer] Democrat Apps Indication:BMI 38.0-38.9,adult Start:05-Mar-20 Instruction Type:Patient Education How to access health information online Indication:BMI 40.0-44.9, adult Start:07-Nov-19 Instruction Type:Patient Education How to access health information online - Detail Indication:BMI 40.0-44.9, adult Start:07-Nov-19 Instruction Type:Patient Education Patient Instructions Indication:BMI 40.0-44.9, adult Start:07-Nov-19 Instruction Type:Provider Instructions for Treatment How to access health information online Indication:Non-smoker Start: 0 Instruction Type:Patient Education How to access health information online - Detail Indication:Non-smoker Start: 0 Instruction Type:Patient Education Patient Instructions Indication:Non-smoker Start: 0 Instruction Type:Provider Instructions for Treatment How to access health information online Indication:Encounter for gynecological examination with abnormal finding Start: 8 Instruction Type:Patient Education How to access health information online - Detail Indication:Encounter for gynecological examination with abnormal finding Start: 8 Instruction Type:Patient Education Patient Instructions Indication:Encounter for gynecological examination with abnormal finding Start: 8 Instruction Type:Provider Instructions for Treatment How to access health information online Indication:Anxiety and depression Start:14-Oct-20 16 Instruction Type:Patient Education How to access health information online - Detail Indication:Anxiety and depression Start:03-Jun-20 Instruction Type:Patient Education Patient Instructions Indication:Anxiety and depression Start:03-Jun-20 Instruction Type:Provider Instructions for Treatment How to access health information online Indication:Anxiety and depression Start:09-Oct-19 Instruction Type:Patient Education How to access health information online - Detail Indication:Anxiety and depression Start:09-Oct-19 Instruction Type:Patient Education Patient Instructions Indication:Anxiety and depression Start:09-Oct-19 Instruction Type:Provider Instructions for Treatment Patient Instructions Indication:Need for prophylactic vaccination and inoculation against influenza (Renamed from Need for immunization against influenza) Start:09-Jun-20 Instruction Type:Provider Instructions for Treatment [facility]; [facility] Work Phone: Family History Unknown Family Member Name Dates Details Family Members In General Comments:cad and arrhythmia- materanl gm - breast cancer Status:Active Father Comments:living doesnt know history- except htn Status:Active Mother Comments:living with anxiety - Status:Active Unknown Family Member Name Dates Details Family Members In General Comments:cad and arrhythmia- materanl gm - breast cancer Status:Active Father Comments:living doesnt know history- except htn Status:Active Mother Comments:living with anxiety - Status:Active Unknown Family Member Name Dates Details Family Members In General Comments:cad and arrhythmia- materanl gm - breast cancer Status:Active Father Comments:living doesnt know history- except htn Status:Active Mother Comments:living with anxiety - Status:Active Unknown Family Member Name Dates Details Family Members In General Comments:cad and arrhythmia- materanl gm - breast cancer Status:Active Father Comments:living doesnt know history- except htn Status:Active Mother Comments:living with anxiety - Status:Active Instructions Name Dates Details Encounter for gynecological examination with abnormal finding : How to access health information online Indication:Encounter for gynecological examination with abnormal finding Encounter for gynecological examination with abnormal finding : How to access health information online - Detail Indication:Encounter for gynecological examination with abnormal finding Encounter for gynecological examination with abnormal finding : Patient Instructions Indication:Encounter for gynecological examination with abnormal finding Anxiety and depression : How to access health information online Indication:Anxiety and depression Anxiety and depression : How to access health information online - Detail Indication:Anxiety and depression Anxiety and depression : Pat ient Instructions Indication:Anxiety and depression Need for prophylactic vaccin ation and inoculation against influenza (Renamed from Need for immunization against influenza) : Patient Instructions Indication:Need for prophylactic vaccination and inoculation against influenza (Renamed from Need for immunization against influenza) Summary Purpose Advance Directives No Advanced Directives Records Found Additional Source Comments INFORMATION SOURCE (unrecogn ized section and content) DATE CREATED AUTHOR 11/06/2018 [facility] RECORDS PERTAINING TO PATIENTS WHO ARE OR HAVE BEEN ENROLLED IN A CHEMICAL DEPENDENCY/SUBSTANCEABUSE PROGRAM, SOME INFORMATION MAY BE OMITTED. This clinical summary was aggregated from multiple sources. Caution should be exercised in using it in the provision of clinical care. This summary normalizes information from multiple sources, and as a consequence, information in this document may materially change the coding, format and clinical context of patient data. In addition, data may be omitted in some cases. CLINICAL DECISIONS SHOULD BE BASED ON THE PRIMARY CLINICAL RECORDS. [employer] provides no warranty or guarantee of the accuracy or completeness of information in this document.
== END | disposition home or self-care (01) ==
PROVIDERS: PCP Internal Medicine; Referring Provider Obstetrics & Gynecology; Visit Provider Obstetrics & Gynecology
DX: Z36.9 Encounter for antenatal screening, unspecified (principal)
CPT/HCPCS: 36415

== ENCOUNTER → 2024-08-29 | Outpatient (CLI) | payer BC, SELFPAY ==
[2024-08-29 15:44] LABS: Absolute Neutrophil Count 8.8 X10^3/uL (2.0-7.7); Basophil# 0.04 X10^3/uL; Basophil% 0.4 % (0-1); Eosinophils% 0.9 % (0-5); Hematocrit 37.3 % (37-47); Hemoglobin 12.4 g/dL (12.0-15.0); Lymphocyte % 13.4 % (19-41); Mean Corp Hgb Conc 33.2 g/dL (32-36); Mean Corpuscular Hgb 26.4 pg (27.0-32.0); Mean Corpuscular Volume 79.5 fL (81-99); Mean Platelet Vol. 9.8 fl (6.2-12.0); Monocyte# 0.61 X10^3/uL; Monocyte% 5.5 % (0-10); NRBC Flagged by Analyzer 0 % (0-5); Neutrophil % 78.6 % (47-70); Platelet Count 198 K/mm3 (150-450); RBC Distribution Width SD 36.7 fl (35.1-43.9); Red Blood Count 4.69 M/mm3 (4.2-5.4); White Blood Count 11.2 K/mm3 (4.4-11.0)
[2024-08-29 16:18] LABS: Glucose Challenge Gest 1H 50g 129 mg/dL (70-140)
[2024-09-02 15:31] LABS: Syphilis Antibodies Non-reactive
[2024-09-03 22:04] LABS: HIV - WCH Non-Reactive (Nonreactive)
== END | disposition home or self-care (01) ==
LOC: BWCLAB 15:33
PROVIDERS: Obstetrics & Gynecology; PCP Internal Medicine; Referring Provider Advanced Practice Midwife; Visit Provider Advanced Practice Midwife
DX: O09.90 Supervision of high risk pregnancy, unspecified, unspecified trimester (principal); Z13.1 Encounter for screening for diabetes mellitus; Z3A.00 Weeks of gestation of pregnancy not specified
CPT/HCPCS: 36415; 82950; 85025; 86703; 86780; 86850; 86900; 86901

== ENCOUNTER → 2024-10-23 | Outpatient (CLI) | payer BC, SELFPAY | END | disposition home or self-care (01) | LOC: LABSPEC 16:00 | PROVIDERS: PCP Internal Medicine; Referring Provider Obstetrics & Gynecology; Visit Provider Obstetrics & Gynecology | DX: O09.93 Supervision of high risk pregnancy, unspecified, third trimester (principal); Z3A.00 Weeks of gestation of pregnancy not specified | CPT/HCPCS: 87077; 87081; 87186 ==

== ENCOUNTER 2024-11-04 15:24 | Outpatient (CLI) | payer BC, SELFPAY ==
--- NOTE | 2024-11-04 15:28 | US_ITS ---
PROCEDURE: OB LIMITED WITH BIOMETRICS REASON FOR EXAM: OBESITY IN COMPARISON: None. FINDINGS Single live intrauterine heart rate 152 beats per minute. age LMP 37 weeks 6 days, ALISON LMP 11/19/2024. age by ultrasound 37 weeks 4 days, ALISON by ultrasound 11/21/2024. Presentation cephalic. Posterior fundal placenta appears within limits. DIMENSIONS: Biparietal Diameter: 35 weeks 4 days/15% Head Circumference: 38 weeks 2 days/39% Abdominal Circumference: 39 weeks 1 day/96% Femur Length: 36 weeks 1 day/13% ESTIMATED WEIGHT: 3342 g +/-501 g ESTIMATED WEIGHT PERCENTILE (24+ weeks): 63% Amniotic Fluid Index: (11.5 cm, maximum pocket 2.5 cm) MATERNAL ANATOMY: Adnexa: Neither maternal ovary is successfully identified. Cervical Length (if measured): Not visualized US/OB Limited With Biometrics IMPRESSION: biometrics as above.. Reading Location: [id number]
--- NOTE | 2024-11-04 15:28 | US_ITS ---
PROCEDURE: BIOPHYSICAL PROF W/O NON STRES REASON FOR EXAM: OBESITY IN TECHNIQUE: Ultrasound imaging of 3rd trimester . COMPARISON: None. FINDINGS: Single live intrauterine heart rate 132 beats per minute. age LMP 37 weeks 6 days, ALISON 11/19/2024. Presentation cephalic. SHILA 13.5, largest pocket 2.62.7 cm. Posterior fundal placenta. Breathing movements: 0 out of 2 Gross body movement: 2 tone: 2 Amniotic fluid volume: 2 Biophysical profile: 6 out of 8. US/Biophysical Prof W/O Non Stres IMPRESSION: Single live intrauterine heart rate 132 beats per minute. Feta l age LMP 37 weeks 6 days, ALISON 11/19/2024. Biophysical profile: 6 out of 8. As above Reading Location: [id number]
[2024-11-04 16:51] VITALS: BP 134/78; PULSE 68; RESP 16; TEMP 36.8
[2024-11-04 16:59] VITALS: BMI 40.8
--- NOTE | 2024-11-04 17:32 | OB.TRI.PN_ITS ---
Progress Notes Date of Service: 11/04/24 Progress Note: Patient presents for triage evaluation secondary to NST for 6/ BPP FHT: 125 Moderate variability reactive no decelerations category I tracing Supreme: no regular Contractions Assessment and plan: Reactive NST, reassuring maternal and status patient discharged to home to follow-up in office. See problem list details for additional plan information. Charges/Coding Multi Select Codes Urinary/Genital Urinary/Genital CPT Codes: 92520-57 non-stress test Interp Assessment & Plan (1) GBS (group B Streptococcus carrier), +RV culture, currently : COMMENT: PCN in labor (2) Anxiety: COMMENT: start zoloft. Relatonship issues with FOB. They started couples counseling. Feels safe; they are no longer together. Her mom will be with her for delivery. She is stable currently (3) Gastroesophageal reflux in : COMMENT: pepcid (4) Obesity affecting : QUALIFIERS: Trimester: third trimester Obesity type affecting pre gnancy: unspecified obesity Qualified Code(s): O99.213 - Obesity complicating , third trimester COMMENT: BMI less than 35. encouraged healthy weight gain. bpp weekly after 37 weeks (5) Rh negative status during : QUALIFIERS: Trimester: third trimester Qualified Code(s): O26.893 - Other specified related conditions, third trimester; Z67.91 - Unspecified blood type, Rh negative COMMENT: rhogam at 28 weeks and PRN, Rhogam given 08/29/24 (6) Supervision of high-risk : QUALIFIERS: Trimester: third trimester Qualified Code(s): O09.93 - Supervision of high risk , unspecified, third trimester COMMENT: PRR,, ALISON 11/19/24, bernard Bettencourt (7) : QUALIFIERS: Weeks of gestation: 37 weeks Qualified Code(s): Z3A.37 - 37 weeks gestation of COMMENT: NIPT low risk. carrier declined afp neg. Anatomy nl.
== END 2024-11-04 17:35 | disposition home or self-care (01) ==
LOC: US 15:31 → WPOUT 16:39 → WP 16:40
PROVIDERS: PCP Internal Medicine; Referring Provider Obstetrics & Gynecology; Visit Provider Advanced Practice Midwife
DX: O99.820 Streptococcus B carrier state complicating pregnancy (principal); O99.343 Other mental disorders complicating pregnancy, third trimester; O99.613 Diseases of the digestive system complicating pregnancy, third trimester; K21.9 Gastro-esophageal reflux disease without esophagitis; O99.213 Obesity complicating pregnancy, third trimester; F41.9 Anxiety disorder, unspecified; Z67.91 Unspecified blood type, Rh negative; Z3A.37 37 weeks gestation of pregnancy
CPT/HCPCS: 59050; 76816; 76819; 99221; G0378

== ENCOUNTER → 2024-11-12 | Outpatient (CLI) | payer BC, SELFPAY ==
--- NOTE | 2024-11-12 08:55 | US_ITS ---
EXAM: US biophysical prof without nonstress CLINICAL HISTORY: Obesity in COMPARISON: 11/04/2024 TECHNIQUE: US biophysical prof without non stress FINDINGS: Single live intrauterine . age by LMP 39 weeks and 0 days, ALISON 11/19/2024. heart rate 125 beats per minute. Presentation cephalic. SHILA 15.1 cm, largest fluid pocket 6.2 cm. Fundal grade 1 placenta. Breathing movements: 2 out of 2 Gross body movements: 2/2 tone: 2/2 Amniotic fluid volume: 2/2 US/Biophysical Prof W/O Non Stres IMPRESSION: Single live intrauterine as above. Biophysical profile 03/28 Reading Location: [id number]
== END | disposition home or self-care (01) ==
LOC: OPUS 08:54
PROVIDERS: PCP Internal Medicine; Referring Provider Obstetrics & Gynecology; Visit Provider Obstetrics & Gynecology
DX: O99.213 Obesity complicating pregnancy, third trimester (principal); Z3A.00 Weeks of gestation of pregnancy not specified
CPT/HCPCS: 76819

== ENCOUNTER 2024-11-14 17:35 | Outpatient (CLI) | payer BC, SELFPAY ==
[2024-11-14 17:49] VITALS: BP 134/72; PULSE 100; O2SAT 94
[2024-11-14 17:50] VITALS: RESP 16; TEMP 37.2
[2024-11-14 18:17] VITALS: BMI 41.1
[2024-11-14 18:39] LABS: ROM Internal Control Test YES-OK TO RESULT pt. (Internal QC); ROM Patient Test Negative (Negative)
[2024-11-14 18:40] LABS: Record Kit Lot#, ROM+ K3294
--- NOTE | 2024-11-22 09:12 | OB.TRI.HP_ITS ---
HPI - General General Date of Service: 11/14/24 Chief Complaint: rule out rupture HPI Narrative CHRISTIANO SANCHEZ, is a 29 F who presents with questionable leaking of fluid. denies consistent contractions, vb. good fm. Maternal Data Information ALISON Calculator Estimated Delivery Date Method Current WG Current Estimate 11/19/24 Ultrasound #1 40w 3d Other Estimates 10/23/24 LMP (Uncertain) 44w 2d PFSH PFS Medical History Family history of breast cancer in female Hx of chlamydia infection Lumbar strain COVID-19 vaccine series completed Anxiety Depression Migraines Hypothyroidism Home Medications ?Medication ?Instructions ?Recorded ?Last Taken ?Type multivit-min no.71-iron fum 28 1 cap PO 03/2211/18/24 History mg-folate no.1 1 mg-dha 300 mg capsule ([facility]V-[place]) ondansetron 4 mg disintegrating 4 mg PO Q4H PRN nausea and 04/16/24 Unknown Rx tablet vomiting #60 tabs famotidine 20 mg tablet (Pepcid) 20 mg PO DAILY heartb urn #30 tabs 07/12/24 11/18/24 Rx sertraline 50 mg tablet (Zoloft) 50 mg PO DAILY depres saw #30 tabs 08/29/24 11/18/24 Rx Allergy/AdvReac Type Severity Reaction Status Date / Time No Known Allergies Allergy Verified 11/19/24 08:24 Family History Grandmother Breast cancer Cervical cancer Aunt Breast cancer Mother Hypertension Migraine Father Hypertension Grandfather Afib Prostate cancer Unknown Diabetes Renal failure Surgical History History of foot surgery Social History adopted: No household members: significant other current occupational status: employed 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, 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[employer] pets and animals: Yes pets and animals: dog(s) history of recent travel: Yes ([place] in February) out of state: Yes out of country: No sexually active: Yes Smoking Status: Never smoker alcohol intake: current alcohol intake frequency: a few times a month details: Not while substance use type: does not use well-balanced diet: daily or most days caffeine: Yes Type: coffee Number of servings: 1 eating out: 1-3 times/week during the past year weight has: decreased > 10 lbs what type of physical activity do you participate in: walking frequency: 3-4 times per week duration: 30-45 minutes/day telma/moravian: Methodist seatbelt use: always do you feel safe at home: Yes additional social history: Ana Sg Narciso History 1 Elective abortions Hx Para 0 Spontaneous abortions Hx # Term Pregnancies Ectopic pregnancies Hx # Pregnancies Multiple births # of living children Visit Details Expected Delivery Route/Plan Labor Preferences- CB/BF classes: enc labor support person: her mom labor intervention preferences: [] pain management options preferred: [] cut cord/dad catch: [] : yes PP control planned: discussed discussed possible routes of delivery and associated risks: [] special requests: [] Plans Covid status: [] Flu vaccine: given Tdap vaccine: [] Rhogam: given LARC form signed: yes Problem list reviewed and updated with the most current plan of care details and appropriate orders placed. Relevant counseling for the gestational age provided. Continue routine care and follow up unless otherwise noted in visit notes/problem list details OB Flowsheet Initial Weight: Not Recorded Date -?-?-?-?-?-?-?-?-?-?-?-?- EGA Weight BP Urine Prot -?-?-?-?-?-?-?-?-?-?-?-?- Glucose FHR FuHt Pres Dilation -?-?-?-?-?-?-?-?-?-?-?-?- Effaced St Visit Note 04/18/24 -?-?-?-?-?-?-?-?-?-?-?-?- 9w 2d 224 lb 138/91 -?-?-?-?-?-?-?-?-?-?-?-?- 160 -?-?-?-?-?-?-?-?-?-?-?-?- KW- CRL 21.6mm c ons with previous US. GA 9.1 accepts NIPT. 04/25/24 -?-?-?-?-?-?-?-?-?-?-?-?- 10w 2d 224 lb 6 oz 130/77 -?-?-?-?-?-?-?-?-?-?-?-?- 165 -?-?-?-?-?-?-?-?-?-?-?-?- JV- pt is here t jennifer due to spotting. She noticed it 2 days ago after straining to have a bowel movement. On exam she has some yellow vaginal discharge that is somewhat fishy smelling. Ultrasound shows a viable 10 week IUP with movement and heart tones recorded. starting metrogel. 05/17/24 -?-?-?-?-?-?-?-?-?-?-?-?- 13w 3d 233 lb 5 oz 126/75 Nega tive -?-?-?-?-?-?-?-?-?-?-?-?- Negative 160 -?-?-?-?-?-?-?-?-?-?-?-?- JV- no lof, vagi nal bleeding, or dec fm. 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 gets dizzy sometimes. we discussed remedies 06/13/24 -?-?-?-?-?-?-?-?-?-?-?-?- 17w 2d 236 lb 6 oz 133/84 Nega tive -?-?-?-?-?-?-?-?-?-?-?-?- Negative 150 -?-?-?-?-?-?-?-?-?-?-?-?- JV- needs anatom y scan scheduled. she is feeling better. just working a lot (up to 24 hrs on end) desires AFP. 07/12/24 -?-?-?-?-?-?-?-?-?-?-?-?- 21w 3d 247 lb 6 oz 126/81 Nega tive -?-?-?-?-?-?-?-?-?-?-?-?- Negative 130 -?-?-?-?-?-?-?-?-?-?-?-?- Sm- no vb lof go od fm Sm- no vb lof good fm no reg ular ctx 08/09/24 -?-?-?-?-?-?-?-?-?-?-?-?- 25w 3d 254 lb 128/74 Negative -?-?-?-?-?-?-?-?-?-?-?-?- Negative 150 27 -?-?-?-?-?-?-?-?-?-?-?-?- SM- no vb lof go od fm no regular ctx. co pressure with intercourse. no pelvic pressure outside of it and no bleeding. 09/10/24 -?-?-?-?-?-?-?-?-?-?-?-?- 30w 0d 251 lb 8 oz 132/80 Nega tive -?-?-?-?-?-?-?-?-?-?-?-?- Negative 145 31 -?-?-?-?-?-?-?-?-?-?-?-?- JV- pt is tearfu l today. (broke up with angela) rpt bp 122/82) no headaches or blurry vision. still works for [employer]. tdap done today. 09/26/24 -?-?-?-?-?-?-?-?-?-?-?-?- 32w 2d 257 lb 135/80 Negative -?-?-?-?-?-?-?-?-?-?-?-?- Negative 140 33 -?-?-?-?-?-?-?-?-?-?-?-?- JV- still having kelechi blandon contractions. JV- still having kelechi hic ks contractions. RSV info discussed. 10/07/24 -?-?-?-?-?-?-?-?-?-?-?-?- 33w 6d 258 lb 6 oz 129/82 Trac e -?-?-?-?-?-?-?-?-?-?-?-?- Negative 130 35 -?-?-?-?-?-?-?-?-?-?-?-?- KW- no vb/lof/ct x. good fm. patient tearful-is still working 2 jobs and is concerned about going into labor when she is away from home. reassurance given 10/23/24 -?-?-?-?-?-?-?-?-?-?-?-?- 36w 1d 258 lb 132/84 Negative -?-?-?-?-?-?-?-?-?-?-?-?- Negative 151 36 0 -?-?-?-?-?-?-?-?-?-?-?-?- MH-No VB, LOF. Good FM. Irreg CTX. GBS done 10/31/24 -?-?-?-?-?-?-?-?-?-?-?-?- 37w 2d 260 lb 2 oz 120/85 Nega tive -?-?-?-?-?-?-?-?-?-?-?-?- Negative 131 37 Cephalic 1 -?-?-?-?-?-?-?-?-?-?-?-?- 0 -3 JV- obesit y in needs testing weekly. bpp's and growth ordered. pt has no other complaints today other than some mild dizziness. 11/08/24 -?-?-?-?-?-?-?-?-?-?-?-?- 38w 3d 264 lb 2 oz 133/88 Nega tive -?-?-?-?-?-?-?-?-?-?-?-?- Negative 120 38 Cephalic 1 -?-?-?-?-?-?-?-?-?-?-?-?- 20 -2 KW- no vb/ lof. ctx are becoming on and off for the last few days. thinks lost mucus plug. had BPP on monday. NST today for decreased movement this afternoon 11/13/24 -?-?-?-?-?-?-?-?-?-?-?-?- 39w 1d 266 lb 6 oz 128/85 Nega tive -?-?-?-?-?-?-?-?-?-?-?-?- Negative 130 39 Cephalic 1 .5 -?-?-?-?-?-?-?-?-?-?-?-?- 50 -2 JV- pt req uesting membrane stripping today. has her mom with her who will be in the delivery room. NST FHR Rate Baby A Baseline: 135 Variability:: Moderate Accelerations:: 15 x 15 Decelerations:: None NST Reactive:: Yes FHR Category:: Category I Uterine Activity:: irregular Assessment & Plan (1) No leakage of amniotic fluid into vagina: COMMENT: ROM plus negative, no change in vaginal exam. d/c home PLAN: Patient presents for triage evaluation secondary to rule out rupture of membranes. rom plus negative FHT: Moderate variability reactive no decelerations category I tracing [place]: irregular Contractions Assessment and plan: Reactive NST, reassuring maternal and status patient discharged to home to follow-up as needed. See problem list details for additional plan information. Charges/Coding Procedures Urinary/Genital [id number]: 44667-25 non-stress test Interp
--- NOTE | 2024-11-22 09:12 | OB.TRI.NOTE ---
HPI - General General Date of Service: 11/14/24 Chief Complaint: rule out rupture HPI Narrative CHRISTIANO SANCHEZ, is a 29 F who presents with questionable leaking of fluid. denies consistent contractions, vb. good fm. Maternal Data Information ALISON Calculator Estimated Delivery Date Method Current WG Current Estimate 11/19/24 Ultrasound #1 40w 3d Other Estimates 10/23/24 LMP (Uncertain) 44w 2d PFSH PFSH Medical History Family history of breast cancer in female Hx of chlamydia infection Lumbar strain COVID-19 vaccine series completed Anxiety Depression Migraines Hypothyroidism Home Medications ?Medication ?Instructions ?Recorded ?Last Taken ?Type multivit-min no.71-iron fum 28 1 cap PO 04/09/24 11/18/24 History mg-folate no.1 1 mg-dha 300 mg capsule (PNV-[place]) ondansetron 4 mg disintegrating 4 mg PO Q4H PRN nausea and 04/16/24 Unknown Rx tablet vomiting #60 tabs famotidine 20 mg tablet (Pepcid) 20 mg PO DAILY heartburn #30 tabs 07/12/24 11/18/24 Rx sertraline 50 mg tablet (Zoloft) 50 mg PO DAILY depression #30 tabs 08/29/24 11/18/24 Rx Allergy/AdvReac Type Severity Reaction Status Date / Time No Known Allergies Allergy Verified 11/19/24 08:24 Family History Grandmother Breast cancer Cervical cancer Aunt Breast cancer Mother Hypertension Migraine Father Hypertension Grandfather Afib Prostate cancer Unknown Diabetes Renal failure Surgical History History of foot surgery Social History adopted: No household members: significant other current occupational status: employed 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, 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[employer] pets and animals: Yes pets and animals: dog(s) history of recent travel: Yes ([place] in February) out of state: Yes out of country: No sexually active: Yes Smoking Status: Never smoker alcohol intake: current alcohol intake frequency: a few times a month details: Not while substance use type: does not use well-balanced diet: daily or most days caffeine: Yes Type: coffee Number of servings: 1 eating out: 1-3 times/week during the past year weight has: decreased > 10 lbs what type of physical activity do you participate in: walking frequency: 3-4 times per week duration: 30-45 minutes/day telma/taoism: Caodaism seatbelt use: always do you feel safe at home: Yes additional social history: Ana Stuart History 1 Elective abortions Hx Para 0 Spontaneous abortions Hx # Term Pregnancies Ectopic pregnancies Hx # Pregnancies Multiple births # of living children Visit Details Expected Delivery Route/Plan Labor Preferences- CB/BF classes: enc labor support person: her mom labor intervention preferences: [] pain management options preferred: [] cut cord/dad catch: [] : yes PP control planned: discussed discussed possible routes of delivery and associated risks: [] special requests: [] Plans Covid status: [] Flu vaccine: given Tdap vaccine: [] Rhogam: given LARC form signed: yes Problem list reviewed and updated with the most current plan of care details and appropriate orders placed. Relevant counseling for the gestational age provided. Continue routine care and follow up unless otherwise noted in visit notes/problem list details OB Flowsheet Initial Weight: Not Recorded Date <del>?</del> EGA Weight BP Urine Prot <del>?</del> Glucose FHR FuHt Pres Dilation <del>?</del> Effaced St Visit Note 04/18/24 <del>?</del> 9w 2d 224 lb 138/91 <del>?</del> 160 <del>?</del> KW- CRL 21.6mm cons with previous US. GA 9.1 accepts NIPT. 04/25/24 <del>?</del> 10w 2d 224 lb 6 oz 130/77 <del>?</del> 165 <del>?</del> MANNY- pt is here today due to spotting. She noticed it 2 days ago after straining to have a bowel movement. On exam she has some yellow vaginal discharge that is somewhat fishy smelling. Ultrasound shows a viable 10 week IUP with movement and heart tones recorded. starting metrogel. 05/17/24 <del>?</del> 13w 3d 233 lb 5 oz 126/75 Negative <del>?</del> Negative 160 <del>?</del> JV- no lof, vaginal bleeding, or dec fm. 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 we discussed remedies 06/13/24 <del>?</del> 17w 2d 236 lb 6 oz 133/84 Negative <del>?</del> Negative 150 <del>?</del> JNadege- needs anatomy scan scheduled. she is feeling better. just working a lot (up to 24 hrs on end) desires AFP. 07/12/24 <del>?</del> 21w 3d 247 lb 6 oz 126/81 Negative <del>?</del> Negative 130 <del>?</del> Sm- no vb lof good fm Sm- no vb lof good fm no regular ctx 08/09/24 <del>?</del> 25w 3d 254 lb 128/74 Negative <del>?</del> Negative 150 27 <del>?</del> SM- no vb lof good fm no regular ctx. co pressure with intercourse. no pelvic pressure outside of it and no bleeding. 01/21/25 <del>?</del> 30w 0d 251 lb 8 oz 132/80 Negative <del>?</del> Negative 145 31 <del>?</del> JV- pt is tearful today. (broke up with fiosmanye) rpt bp 122/82) no headaches or blurry vision. still works for [employer]. tdap done today. 09/26/24 <del>?</del> 32w 2d 257 lb 135/80 Negative <del>?</del> Negative 140 33 <del>?</del> JV- still having kelechi blandon contractions. JV- still having kelechi blandon contractions. RSV info discussed. 10/07/24 <del>?</del> 33w 6d 258 lb 6 oz 129/82 Trace <del>?</del> Negative 130 35 <del>?</del> KW- no vb/lof/ctx. good fm. patient tearful-is still working 2 jobs and is concerned about going into labor when she is away from home. reassurance given 10/23/24 <del>?</del> 36w 1d 258 lb 132/84 Negative <del>?</del> Negative 151 36 0 <del>?</del> MH-No VB, LOF. Good FM. Irreg CTX. GBS done 10/31/24 <del>?</del> 37w 2d 260 lb 2 oz 120/85 Negative <del>?</del> Negative 131 37 Cephalic 1 <del>?</del> 0 -3 JV- obesity in needs testing weekly. bpp's and growth ordered. pt has no other complaints today other than some mild dizziness. 11/08/24 <del>?</del> 38w 3d 264 lb 2 oz 133/88 Negative <del>?</del> Negative 120 38 Cephalic 1 <del>?</del> 20 -2 KW- no vb/lof. ctx are becoming on and off for the last few days. thinks lost mucus plug. had BPP on monday. NST today for decreased movement this afternoon 11/13/24 <del>?</del> 39w 1d 266 lb 6 oz 128/85 Negative <del>?</del> Negative 130 39 Cephalic 1.5 <del>?</del> 50 -2 JV- pt requesting membrane stripping today. has her mom with her who will be in the delivery room. NST FHR Rate Baby A Baseline: 135 Variability:: Moderate Accelerations:: 15 x 15 Decelerations:: None NST Reactive:: Yes FHR Category:: Category I Uterine Activity:: irregular Assessment & Plan (1) No leakage of amniotic fluid into vagina: COMMENT: ROM plus negative, no change in vaginal exam. d/c home PLAN: Patient presents for triage evaluation secondary to rule out rupture of membranes. rom plus negative FHT: Moderate variability reactive no decelerations category I tracing [place]: irregular Contractions Assessment and plan: Reactive NST, reassuring maternal and status patient discharged to home to follow-up as needed. See problem list details for additional plan information. Charges/Coding Procedures Urinary/Genital [id number]: [id number] non-stress test Interp
== END 2024-11-14 18:45 | disposition home or self-care (01) ==
LOC: WPOUT 17:41 → WP 17:41
PROVIDERS: PCP Internal Medicine; Referring Provider Registered Nurse; Visit Provider Registered Nurse
DX: Z34.00 Encounter for supervision of normal first pregnancy, unspecified trimester (principal)
CPT/HCPCS: 59025; 59050; 84112; 99221; G0378

== ENCOUNTER 2024-11-19 08:15 | Inpatient (IN) | payer BC, SELFPAY ==
[2024-11-19] VITALS (45 sets, daily range): BP systolic 97–154; BP diastolic 52–85; PULSE 52–145; RESP 12–18; TEMP 35.7–36.8; O2SAT 97–100; BMI 41.6
[2024-11-19] MEDS: Lactated Ringers 1,000 ML 50 ML IV (08:40)
--- NOTE | 2024-11-19 08:41 | HP.PCM.OB_ITS ---
HPI - General General Date of Admission: 11/19/24 HPI Narrative CHRISTIANO SANCHEZ, is a 29 y/o @ 40 weeks 0 days who presents to L&D with painful contractions that started around 4 am today. They are now every 2 minutes and she thinks her water may have broken. She is tearful with contractions and unable to sit comfortably in the bed. Maternal Data Information ALISON Calculator Estimated Delivery Date Method Current WG Current Estimate 11/19/24 Ultrasound #1 40w 0d Other Estimates 10/23/24 LMP (Uncertain) 43w 6d PFSH PFS Medical History Family history of breast cancer in female Hx of chlamydia infection Lumbar strain COVID-19 vaccine series completed Anxiety Depression Migraines Hypothyroidism Home Medications ?Medication ?Instructions ?Recorded ?Last Taken ?Type multivit-min no.71-iron fum 28 cap PO 11/13/24 History mg-folate no.1 1 mg-dha 300 mg capsule (PNV-Ragley) ondansetron 4 mg disintegrating 4 mg PO Q4H PRN nausea and 04/16/24 Unknown Rx tablet vomiting #60 tabs famotidine 20 mg tablet (Pepcid) 20 mg PO DAILY #30 ta bs 07/12/24 11/14/24 Rx sertraline 50 mg tablet (Zoloft) 50 mg PO DAILY #30 ta bs 08/29/24 11/13/24 Rx Allergy/AdvReac Type Severity Reaction Status Date / Time No Known Allergies Allergy Verified 11/19/24 08:24 Family History Grandmother Breast cancer Cervical cancer Aunt Breast cancer Mother Hypertension Migraine Father Hypertension Grandfather Afib Prostate cancer Unknown Diabetes Renal failure Surgical History History of foot surgery Social History adopted: No household members: significant other current occupational status: employed 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, 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[employer] pets and animals: Yes pets and animals: dog(s) history of recent travel: Yes ([place] in February) out of state: Yes out of country: No sexually active: Yes Smoking Status: Never smoker alcohol intake: current alcohol intake frequency: a few times a month details: Not while substance use type: does not use well-balanced diet: daily or most days caffeine: Yes Type: coffee Number of servings: 1 eating out: 1-3 times/week during the past year weight has: decreased > 10 lbs what type of physical activity do you participate in: walking frequency: 3-4 times per week duration: 30-45 minutes/day telma/catholic: Advent seatbelt use: always do you feel safe at home: Yes additional social history: Ana Stuart History 1 Elective abortions Hx Para 0 Spontaneous abortions Hx # Term Pregnancies Ectopic pregnancies Hx # Pregnancies Multiple births # of living children Visit Details Expected Delivery Route/Plan Labor Preferences- CB/BF classes: enc labor support person: her mom labor intervention preferences: [] pain management options preferred: [] cut cord/dad catch: [] : yes PP control planned: discussed discussed possible routes of delivery and associated risks: [] special requests: [] Plans Covid status: [] Flu vaccine: given Tdap vaccine: [] Rhogam: given LARC form signed: yes Problem list reviewed and updated with the most current plan of care details and appropriate orders placed. Relevant counseling for the gestational age provided. Continue routine care and follow up unless otherwise noted in visit notes/problem list details OB Flowsheet Initial Weight: Not Recorded Date -?-?-?-?-?-?-?-?-?-?-?-?- EGA Weight BP Urine Prot -?-?-?-?-?-?-?-?-?-?-?-?- Glucose FHR FuHt Pres Dilation -?-?-?-?-?-?-?-?-?-?-?-?- Effaced St Visit Note 04/18/24 -?-?-?-?-?-?-?-?-?-?-?-?- 9w 2d 224 lb 138/91 -?-?-?-?-?-?-?-?-?-?--?-?- 160 -?-?-?-?-?-?-?-?-?-?-?-?- KW- CRL 21.6mm c ons with previous US. GA 9.1 accepts NIPT. 04/25/24 -?-?-?-?-?-?-?-?-?-?-?-?- 10w 2d 224 lb 6 oz 130/77 -?-?-?-?-?-?-?-?-?-?-?-?- 165 -?-?-?-?-?-?-?-?-?-?-?-?- JV- pt is here t jennifer due to spotting. She noticed it 2 days ago after straining to have a bowel movement. On exam she has some yellow vaginal discharge that is somewhat fishy smelling. Ultrasound shows a viable 10 week IUP with movement and heart tones recorded. starting metrogel. 05/17/24 -?-?-?-?-?-?-?-?-?-?-?-?- 13w 3d 233 lb 5 oz 126/75 Nega tive -?-?-?-?-?-?-?-?-?-?-?-?- Negative 160 -?-?-?-?-?-?-?-?-?--?-?-?- JV- no lof, vagi nal bleeding, or dec fm. 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 gets dizzy sometimes. we discussed remedies 06/13/24 -?-?-?-?-?-?-?-?-?-?-?-?- 17w 2d 236 lb 6 oz 133/84 Nega tive -?-?-?-?-?-?-?-?-?-?-?-?- Negative 150 -?-?-?-?-?-?-?-?-?-?-?-?- JV- needs anatom y scan scheduled. she is feeling better. just working a lot (up to 24 hrs on end) desires AFP. 07/12/24 -?-?-?-?-?-?-?-?-?-?-?-?- 21w 3d 247 lb 6 oz 126/81 Nega tive -?-?-?-?-?-?-?-?-?-?-?-?- Negative 130 -?-?-?-?-?-?-?-?-?-?-?-?- Sm- no vb lof go od fm Sm- no vb lof good fm no reg ular ctx 08/09/24 -?-?-?-?-?-?-?-?-?-?-?-?- 25w 3d 254 lb 128/74 Negative -?-?-?-?-?-?-?-?-?-?-?-?- Negative 150 27 -?-?-?-?-?-?-?-?-?-?-?-?- SM- no vb lof go od fm no regular ctx. co pressure with intercourse. no pelvic pressure outside of it and no bleeding. 09/10/24 -?-?-?-?-?-?-?-?-?-?-?-?- 30w 0d 251 lb 8 oz 132/80 Nega tive -?-?-?-?-?-?-?-?-?-?-?-?- Negative 145 31 -?-?-?-?-?-?-?-?-?-?-?-?- JV- pt is tearfu l today. (broke up with angela) rpt bp 122/82) no headaches or blurry vision. still works for [employer]. tdap done today. 09/26/24 -?-?-?-?-?-?-?-?-?-?-?-?- 32w 2d 257 lb 135/80 Negative -?-?-?-?-?-?-?-?-?-?-?-?- Negative 140 33 -?-?-?-?-?-?-?-?-?-?-?-?- JV- still having kelechi blandon contractions. JV- still having kelechi hic ks contractions. RSV info discussed. 10/07/24 -?-?-?-?-?-?-?-?-?-?-?-?- 33w 6d 258 lb 6 oz 129/82 Trac e -?-?-?-?-?-?-?-?-?-?-?-?- Negative 130 35 -?-?-?-?-?-?-?-?-?-?-?-?- KW- no vb/lof/ct x. good fm. patient tearful-is still working 2 jobs and is concerned about going into labor when she is away from home. reassurance given 10/23/24 -?-?-?-?-?-?-?-?-?-?-?-?- 36w 1d 258 lb 132/84 Negative -?-?-?-?-?-?-?-?-?-?-?-?- Negative 151 36 0 -?-?-?-?-?-?-?-?-?-?-?-?- MH-No VB, LOF. Good FM. Irreg CTX. GBS done 10/31/24 -?-?-?-?-?-?-?-?-?-?-?-?- 37w 2d 260 lb 2 oz 120/85 Nega tive -?-?-?-?-?-?-?-?-?-?-?-?- Negative 131 37 Cephalic 1 -?-?-?-?-?-?-?-?-?-?-?-?- 0 -3 JV- obesit y in needs testing weekly. bpp's and growth ordered. pt has no other complaints today other than some mild dizziness. 11/08/24 -?-?-?-?-?-?-?-?-?-?-?-?- 38w 3d 264 lb 2 oz 133/88 Nega tive -?-?-?-?-?-?-?-?-?-?-?-?- Negative 120 38 Cephalic 1 -?-?-?-?-?-?-?-?-?-?-?-?- 20 -2 KW- no vb/ lof. ctx are becoming on and off for the last few days. thinks lost mucus plug. had BPP on monday. NST today for decreased movement this afternoon 11/13/24 -?-?-?-?-?-?-?-?-?-?-?-?- 39w 1d 266 lb 6 oz 128/85 Nega tive -?-?-?-?-?-?-?-?-?-?-?-?- Negative 130 39 Cephalic 1 .5 -?-?-?-?-?-?-?-?-?-?-?-?- 50 -2 JV- pt req uesting membrane stripping today. has her mom with her who will be in the delivery room. ROS Constitutional Constitutional: Denies change in weight, fatigue, fever(s), headache(s), poor appetite or weakness Eyes Eyes: Denies blurry vision, change in vision, seeing flashes or spots in vision ENT HEENT: Denies dizziness, headache(s), loss taste/smell or sore throat Cardiovascular Cardiovascular: Denies chest pain, dizziness, dyspnea, irregular heart rhythm, leg edema, palpitations, rapid heart rate or vomiting Respiratory/Chest Respiratory/Chest: Denies chest tightness, cough, dyspnea or breast pain Gastrointestinal Gastrointestinal: Denies abdominal pain, anorexia, constipation, cramping, diarrhea, hemorrhoids, vomiting or weight changes Genitourinary Genitourinary: Denies dysuria, flank pain, genital lesions, genital pain, urinary frequency or urinary urgency Musculoskeletal Musculoskeletal: Denies back pain, difficulty walking, joint pain, limited range of motion, muscle cramps or numbness Integumentary Integumentary: Denies lesions or unusual bruising Neurologic Neurologic: Denies abnormal movements, abnormal speech, dizziness, numbness, seizure-like activity or syncope Psychiatric Psychiatric: Denies anxiety, behavioral changes, change in appetite, change in libido, cognitive impairment, confusion, depression, difficulty concentrating, hallucinations or suicidal thoughts Endocrine Endocrinology: Denies excessive sweating, polydipsia or polyuria Hematologic/Lymphatic Hematologic/Lymphatic: Denies easy bleeding, easy bruising or lymphadenopathy Allergic/Immunologic Allergic/Immunologic: Denies itchy eyes, lip swelling, seasonal rhinorrhea, rhinitis, throat swelling, tongue swelling, eczemia, wheezing or asthma Vital Signs Vital Signs Vital Signs: 11/19/24 08:38 11/19/24 08:38 Pulse Rate 66 Pulse Ox 98 Weight Weight: 266 lb Body Mass Index (BMI) 41.6 Physical Exam Const alert, oriented x3, no apparent distress and healthy appearing General Appearance: cooperative; Negative for anxious HEENT normocephalic Face and Sinus: normal facial exam Eyes EOMs intact bilaterally and no scleral icterus General Eye: normal appearance of both eyes Neck full ROM and supple Lymph Lymphatic: no lymphadenopathy noted Chest Chest: abnormal inspection of the chest Resp normal respiratory effort Effort and Inspection: able to speak in complete sentences Cardio regular rate GI soft to palpation and non-tender Inspection: gravid Palpation: soft; Negative for tender external exam normal Narrative: cx is 2/80/-2 mid position, and mid consistancy. Amniotic Fluid: ROM+plus Back/Spine no CVA tenderness Extremity normal to inspection, full ROM and no clubbing, cyanosis or edema General Extremity: Negative for calf tenderness or edema Skin Lesions: no lesions Rashes: no rashes Psych mental status grossly normal Labs Labs Labs: Blood Type A NEGATIVE Antibody Screen NEGATIVE Hct 37.3 % (37-47) Hgb 12.4 g/dL (12.0-15.0) Obstetrics Ultrasound Syphilis Total Ab Non-reactive Rubella IgG Antibody Reactive (Nonreactive) Hep Bs Antigen Non-Reactive (Nonreactive) Hepatitis C Antibody Non-Reactive (Nonreactive) Chlamydia DNA (ROLAND) Negative (Negative) N.gonorrhoeae DNA (ROLAND) Negative (Negative) HIV 1&2 Antibody Non-Reactive (Nonreactive) Glucose 1 Hr 50 gm 129 mg/dL (70-140) Miscellaneous Test Comment Assessment & Plan (1) GBS (group B Streptococcus carrier), +RV culture, currently : COMMENT: PCN in labor (2) Anxiety: COMMENT: start zoloft. Relatonship issues with FOB. They started couples counseling. Feels safe; they are no longer together. Her mom will be with her for delivery. She is stable currently (3) Gastroesophageal reflux in : COMMENT: pepcid (4) Obesity affecting : QUALIFIERS: Trimester: third trimester Obesity type affecting : unspecified obesity Qualified Code(s): O99.213 - Obesity complicating , third trimester COMMENT: BMI less than 35. encouraged healthy weight gain. bpp weekly after 37 weeks (5) Rh negative status during : QUALIFIERS: Trimester: third trimester Qualified Code(s): O26.893 - Other specified related conditions, third trimester; Z67.91 - Unspecified blood type, Rh negative COMMENT: rhogam at 28 weeks and PRN, Rhogam given 08/29/24 (6) Supervision of high-risk : QUALIFIERS: Trimester: third trimester Qualified Code(s): O09.93 - Supervision of high risk , unspecified, third trimester COMMENT: PRR,, ALISON 11/19/24, boy sonia Bettencourt (7) : QUALIFIERS: Weeks of gestation: 39 weeks Qualified Code(s): Z3A.39 - 39 weeks gestation of COMMENT: NIPT low risk. carrier declined afp neg. Anatomy nl. PLAN: Plan Patient presents IAL, plan expectant management for , pitocin/AROM PRN if needed. Pain management: plans epidural. GBS positive plan IV PCN. Management of any complications: none I have reviewed the [facility] and made any clinically relevant updates.
[2024-11-19 09:06] LABS: Absolute Lymphocyte Count 1.64 X10^3/uL (0.83-4.51); Absolute Neutrophil Count 8.7 X10^3/uL (2.0-7.7); Basophil# 0.06 X10^3/uL; Basophil% 0.5 % (0-1); Eosinophil# 0.08 X10^3/uL; Eosinophils% 0.7 % (0-5); Hematocrit 37.2 % (37-47); Hemoglobin 12.8 g/dL (12.0-15.0); Lymphocyte # 1.64 X10^3/ul (0.83-4.51); Lymphocyte % 14.4 % (19-41); Mean Corp Hgb Conc 34.4 g/dL (32-36); Mean Corpuscular Hgb 26.2 pg (27.0-32.0); Mean Corpuscular Volume 76.2 fL (81-99); Mean Platelet Vol. 10.3 fl (6.2-12.0); Monocyte# 0.75 X10^3/uL; Monocyte% 6.6 % (0-10); NRBC Flagged by Analyzer 0 % (0-5); Neutrophil # 8.72 X10^3/uL (2.7-7.7); Neutrophil % 76.8 % (47-70); Platelet Count 192 K/mm3 (150-450); RBC Distribution Width CV 13.5 % (11.6-14.6); Red Blood Count 4.88 M/mm3 (4.2-5.4); White Blood Count 11.4 K/mm3 (4.4-11.0)
[2024-11-19] MEDS: Ondansetron 4 MG/2 ML Vial IV (09:14)
[2024-11-19 09:27] LABS: ROM Internal Control Test YES-OK TO RESULT pt. (Internal QC)
[2024-11-19 09:28] LABS: Record Kit Lot#, ROM+ K3294
[2024-11-19 09:32] LABS: ROM Patient Test POSITIVE (Negative)
[2024-11-19] MEDS: Penicillin G Pot 5,000,000 UNITS in 0.9% Normal Saline (100mL MB+) 100 ML 150 UNITS IV (10:04)
[2024-11-19] MEDS: Lactated Ringers 1,000 ML 999 ML IV (10:06)
[2024-11-19 10:09] LABS: Syphilis Antibodies Nonreactive (Nonreactive)
[2024-11-19] MEDS: fentaNYL-bupivacaine (epidural) 100 ML BAG EPIDURAL ×2 (10:50→15:25)
[2024-11-19] MEDS: Oxytocin 15 Units/NS 250ml 15 UNITS/250 ML IV.SOLN 2 UNITS IV (13:38)
[2024-11-19] MEDS: Mag Hydrox/Al Hydrox/Simeth 30 ML UDC PO ×2 (13:38→17:42)
[2024-11-19] MEDS: Penicillin G 3,000,000 Units 50 ML 100 UNITS IV (14:13)
[2024-11-19] MEDS: Lactated Ringers 1,000 ML 200 ML IV (17:09)
--- NOTE | 2024-11-19 19:17 | EX.PCM.OBVAG ---
Assessment & Plan (1) GBS (group B Streptococcus carrier), +RV culture, currently : COMMENT: PCN in labor (2) Anxiety: COMMENT: start zoloft. Relatonship issues with FOB. They started couples counseling. Feels safe; they are no longer together. Her mom will be with her for delivery. She is stable currently (3) Gastroesophageal reflux in : COMMENT: pepcid (4) Obesity affecting : QUALIFIERS: Trimester: third trimester Obesity type affecting : unspecified obesity Qualified Code(s): O99.213 - Obesity complicating , third trimester COMMENT: BMI less than 35. encouraged healthy weight gain. bpp weekly after 37 weeks (5) Rh negative status during : QUALIFIERS: Trimester: third trimester Qualified Code(s): O26.893 - Other specified related conditions, third trimester; Z67.91 - Unspecified blood type, Rh negative COMMENT: rhogam at 28 weeks and PRN, Rhogam given 08/29/24 (6) Supervision of high-risk : QUALIFIERS: Trimester: third trimester Qualified Code(s): O09.93 - Supervision of high risk , unspecified, third trimester COMMENT: PRR,, ALISON 11/19/24, boy sonia DENISE Sg (7) : QUALIFIERS: Weeks of gestation: 39 weeks Qualified Code(s): Z3A.39 - 39 weeks gestation of COMMENT: NIPT low risk. carrier declined afp neg. Anatomy nl. Maternal Data Information ALISON Calculator Estimated Delivery Date Method Current WG Current Estimate 11/19/24 Ultrasound #1 40w 0d Other Estimates 10/23/24 LMP (Uncertain) 43w 6d Gestational age: 40 weeks 0 days Vaginal Delivery Maternal Presentation Maternal Presentation: Active Labor Vaginal Delivery Information Procedure Performed: Vacuum Assisted Vaginal Delivery Station at time of placement: +3 Number of vacuum pulls: 1 Number of vacuum pop offs: 0 Surgeon/Practitioner: Katt Marlow Date of Procedure: 11/19/24 Pre-Procedure Diagnosis: 29 y/o @ 40 weeks, 0 days, active labor Post-Procedure Diagnosis: 29 y/o @ 40 weeks, 0 days, active labor, terminal bradycarida Type of anesthesia: Epidural Estimated Blood Loss: 300cc Time of Delivery: 19:00 Findings Description of procedure: Patient began pushing and the heart rate dropped into the 70's for 3 contractions. A kiwi vacuum was applied to the head while in the +3 station to assist in quick delivery. With one pull and zero pop offs, The head delivered in the VEDA presentation. The head was delivered atraumatically. The anterior and posterior shoulders delivered without complication followed by the rest of the infant and the was placed on the maternal abdomen. Delayed cord clamping was employed for approximately 60 seconds. Cord was clamped and cut and gentle traction was applied to the cord and the placenta delivered spontaneously immediately following it was noted to be intact with three-vessel cord. The perineum and vagina were inspected and noted to have a1st degree perineal laceration and a small right vaginal wall tear. Both were repaired with a 2-0 vicryl. EBL was 300cc. Patient and tolerated delivery well. Procedure findings: viable male scott Presentation: Vertex Amniotic Membrane Rupture Type: Artificial Amniotic Fluid Description: Clear Placental Delivery Description: Spontaneous Placenta Disposition: [facility] Specimen collected: No Cord Vessel Description: 3 Vessels Cord Entanglement: None A Gender: Male (1 minute): 8 (5 minute): 9 Delayed Cord Clamping: Yes Clinical Research Nurse Coordinator science specialist: No Post Vaginal Deli Medications given after delivery: IV Pitocin Episiotomy Description: None Laceration: 1st degree Complication Complications: No Multi Select Codes Urinary/Genital Urinary/Genital CPT Codes: 95366 Vaginal Delivery [facility]
--- NOTE | 2024-11-19 19:22 | PCM.DC ---
Discharge Instructions Diet Discharge Diet: No restrictions DC O2, CPAP, BIPAP needs Home O2 Discharge instructions: No Dressing / Incision Discharge Activity: Return to Normal Activity, May Not Drive (while taking narcotic pain medications.) and May Shower May resume sexual activity in: 4-6 weeks Dressing / Incision Call your doctor if your incision/area has: Continuous Slow Oozing, Sudden Increased Bleeding, Increased Pain/ Swelling, Increased Redness and Foul Smelling Discharge Follow Up Care Please Follow Up With: Katt Marlow DO When: Call [phone] to make an appointment with your doctor in 6 weeks. If you had elevated blood pressure or 4th degree laceration, you will need to be seen in 2 weeks. Test Results: Test results from this visit will be discussed in further detail at your follow-up appointment, if applicable. Discharge Plan Admission Admit Date/Time: 11/19/24 08:15 Attending Provider: Katt Marlow Primary Care Provider: Leah Madrigal Discharge Orders/Prescriptions Prescriptions: No Action P[facility]-[place] 28-1-300 mg capsule 1 cap PO famotidine [Pepcid] 20 mg tablet 20 mg PO DAILY Qty: 30 6RF sertraline [Zoloft] 50 mg tablet 50 mg PO DAILY Qty: 30 4RF ondansetron 4 mg tablet,disintegrating 4 mg PO Q4H PRN (Reason: nausea and vomiting) Qty: 60 2RF Referrals / Follow Up: Leah Madrigal DO [Primary Care Provider] -
[2024-11-19] MEDS: Oxytocin 15 Units/NS 250ml 15 UNITS/250 ML IV.SOLN 83 UNITS IV (19:40)
[2024-11-19] MEDS: Acetaminophen 500 MG Tablet 1000 MG PO (21:50)
[2024-11-20] VITALS (11 sets, daily range): BP systolic 123–143; BP diastolic 68–85; PULSE 68–96; RESP 15–18; TEMP 36.4–36.9; O2SAT 92–98
[2024-11-20] MEDS: Acetaminophen 500 MG Tablet 1000 MG PO ×3 (04:46→18:56)
--- NOTE | 2024-11-20 08:10 | PN.OBGYN_ITS ---
Subjective Subjective Patient doing well without complaints. Tolerating PO. Ambulating and voiding without difficulty. Feeding well. Denies chest pain, shortness of breath, calf pain/swelling, fevers, chills, lightheadedness. Objective Data Objective Data Vital Signs: Vital Signs Temp Pulse Resp BP Pulse Ox O2 Del Method 98.5 F 82 17 137/68 H 96 Room Air 11/20/24 04:00 11/20/24 04:46 11/20/24 04:00 11/20/24 04:46 11/20/24 04:00 11/20/24 04:00 Oxygen Delivery Method Room Air Weight: 266 lb Body Mass Index (BMI) 41.6 Intake & Output: Intake and Output for Last 24 Hours 11/18/24 11/19/24 11/20/24 23:59 23:59 23:59 Intake Total 2961.44 / 2961.44 Output Total 700 / 700 900 / 900 Balance 2261.44 / 2261.44 -900 / -900 Lab / Micro Data 11/19/24 08:40 Labs: Laboratory Results - last 24 hr 11/19/24 08:40: WBC 11.4 H, RBC 4.88, Hgb 12.8, Hct 37.2, MCV 76.2 L, MCH 26.2 L , MCHC 34.4, RDW Std Deviation 37.0, RDW Coeff of Deon 13.5, Plt Count 192, MPV 10.3, Immature Gran % (Auto) 1.000 H, Neut % (Auto) 76.8 H, Lymph % (Auto) 14.4 L, Schuyler % (Auto) 6.6, Eos % (Auto) 0.7, Baso % (Auto) 0.5, Absolute Neuts (auto) 8.7 H, Absolute Lymphs (auto) 1.64, Nucleated RBC % 0, Vag Amniotic Fld Detect POSITIVE H, Syphilis Total Ab Nonreactive, Blood Type A NEGATIVE, Antibody Screen NEGATIVE Physical Exam Const alert and oriented x3 HEENT normocephalic Eyes PERRL Neck full ROM Resp normal respiratory effort GI soft to palpation GI Narrative: FF below U Assessment & Plan (1) Vacuum-assisted vaginal delivery: COMMENT: JACKIE Covington (2) Rh negative status during : QUALIFIERS: Trimester: third trimester Qualified Code(s): O26.893 - Other specified related conditions, third trimester; Z67.91 - Unspecified blood type, Rh negative COMMENT: rhogam at 28 weeks and PRN, Rhogam given 08/29/24 (3) Anxiety: COMMENT: start zoloft. Relatonship issues with FOB. They started couples counseling. Feels safe; they are no longer together. Her mom will be with her for delivery. She is stable currently PLAN: Plan s/p PPD # 1 1. routine post delivery care 2. breast feeding- support given 3. rh negative 4. rubella immune
[2024-11-20] MEDS: Ibuprofen 600 MG Tablet PO ×3 (08:52→21:51)
[2024-11-20] MEDS: Benzocaine/Lanolin/Aloe Vera 85 GM Spray 1 SPRAY TOPICAL (18:57)
[2024-11-20] MEDS: Sertraline 50 MG Tablet PO (21:06)
[2024-11-21 02:54] VITALS: BP 124/69; PULSE 63; PULSE 66; RESP 15; TEMP 36.6; O2SAT 98
[2024-11-21 02:55] VITALS: BP 124/69; PULSE 65
[2024-11-21 08:44] VITALS: BP 139/89; PULSE 88
--- NOTE | 2024-11-21 09:02 | PN.OBGYN_ITS ---
Subjective Subjective Patient doing well without complaints. Tolerating PO. Ambulating and voiding without difficulty. Feeding well. Denies chest pain, shortness of breath, calf pain/swelling, fevers, chills, lightheadedness. planning to talk with social worker health services about her anxiety. no si/hi Objective Data Objective Data Vital Signs: Vital Signs Temp Pulse Resp BP Pulse Ox O2 Del Method 97.8 F 88 15 139/89 H 98 Room Air 11/21/24 02:54 11/21/24 08:44 11/21/24 02:54 11/21/24 08:44 11/21/24 02:54 11/21/24 02:54 Oxygen Delivery Method Room Air Weight: 266 lb Body Mass Index (BMI) 41.6 Intake & Output: Intake and Output for Last 24 Hours 11/19/24 11/20/24 11/21/24 23:59 23:59 23:59 Intake Total 2961.44 / 2961.44 Output Total 700 / 700 900 / 900 Balance 2261.44 / 2261.44 -900 / -900 Lab / Micro Data 11/19/24 08:40 ROS Constitutional Constitutional: Denies chills, fatigue, fever(s), poor appetite or weakness Eyes Eyes: Denies blurry vision, change in vision, seeing flashes or spots in vision ENT HEENT: Denies dizziness, headache(s), loss taste/smell or sore throat Cardiovascular Cardiovascular: Denies chest pain, dizziness, dyspnea, irregular heart rhythm, palpitations or rapid heart rate Respiratory/Chest Respiratory/Chest: Denies chest tightness, cough, dyspnea or breast pain Gastrointestinal Gastrointestinal: Denies abdominal pain, constipation or vomiting Genitourinary Genitourinary: Denies dysuria or flank pain Musculoskeletal Musculoskeletal: Denies difficulty walking, joint pain, limited range of motion or numbness Neurologic Neurologic: Denies abnormal movements, abnormal speech, dizziness, numbness, seizure-like activity or syncope Psychiatric Psychiatric: Denies anxiety, behavioral changes, change in appetite, confusion, depression or suicidal thoughts Physical Exam Const alert, oriented x3 and no apparent distress General Appearance: cooperative and comfortable Resp normal respiratory effort Cardio regular rate GI normal to inspection, nondistended, normoactive bowel sounds GI Narrative: uterus is firm below umbilicus Palpation: soft Back/Spine no CVA tenderness and thoraco-lumbar ROM normal Extremity normal to inspection, no clubbing, cyanosis or edema, no calf tenderness and no pedal edema Psych mental status grossly normal, thought process normal, cooperative, affect normal, speech normal, activity/motor behavior normal, denies homicidal ideation and denies suicidal ideation Assessment & Plan (1) Vacuum-assisted vaginal delivery: COMMENT: JACKIE Covington PLAN: s/p PPD # 1 1. routine post delivery care 2. breast feeding- support given 3. rh positive 4. rubella immune
[2024-11-21 09:43] VITALS: BP 139/89; PULSE 88; RESP 18; TEMP 37.1; O2SAT 97
--- NOTE | 2024-11-22 09:05 | CASEMGMT ---
Social Work Brief Assessment - Labor and Delivery Unit Patient Address: [place] [address] Phone number: [phone] Date and Time of Referral:? 11/19/242208 Referred By: Dr. Marlow Date and time of intervention:? 11/21/24, 1100 Reason for Referral:?? mental health Sw completed chart review and acknowledges social work consult due to maternal mental health. Sw presented to bedside and introduced self to mother of baby (MOB- Fabi) and father of baby (FOB- Sg Stuart). Sw explained reason for sw involvement and completed psychosocial assessment. Informant:?? Medical record, MOB and FOB History:? NATACHA is 29 year old female who is 1, para 0- now 1 following labor and delivery. NATACHA received routine care during with [facility]. NATACHA presented to hospital at delivered baby at 40 weeks gestation on 11/19/24. Baby boy, named Adria Castaneda, was born weighing 7lb 14oz with apgars of 8 and 9 at one and five minutes of life, respectfully. NATACHA reports that she is breast feeding and navigating some latching problems. MOB states that she has a pump for home and has a follow up appointment with outpatient . Baby will be followed by Dr. Lee for pediatrics. When sw presented to bedside parents were working on getting baby dressed and ready for discharge. This is first baby for MOB, and second for FOB. FOB states that he has an 8 year old son, Jhony, who did present to bedside and was able to meet baby. MOB states that she and FOB met on H[place] (dating michaela) 1.5 years ago, they dated for a while and MOB got , but they are not together at this time. NATACHA reports that she currently resides by herself and baby will be included in her residence when they are discharged to home. NATACHA states that her biggest support at this time is her mom, who will be coming to stay with her for a while once she and baby are home. Both parents report to having their drivers license and reliable means of transportation. NATACHA has obtained all necessary baby supplies, including: car seat, safe sleep space, clothes, diapers and wipes. MOB and FOB graduated from high school and MOB went on to obtain her Bachelor's in nursing. 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 FOJarrod is employed in [employer], stating he has only worked there for 5 months, and will be able to obtain paternity leave once he has been employed there for 6 months. MOB reports to being over income for community resources that provide financial assistance. MOB states that she has been diagnosed with anxiety and depression. MOB states that she is already starting to feel anxious now that baby is here. MOB states that she is anxious and is tired and eager to be discharged so she can go home. MOB states that she talked to her OBGYN (Jassi Chawla) this morning regarding her mental health and how she is feeling. MOB states that she may start on something in addition to her zoloft. MOB states that she is also open to getting connected to mental health services and supports. Sw provided MOB with list of [facility] resources, and highlighted counseling agencies that are listed. MOB states that she may look into getting connected to [facility]. Sw encouraged MOB to do so, and asked MOB if she wanted assistance with an intake appointment, MOB declined and stated that it is something she feels comfortable doing on her own. Sw educated parents on signs and symptoms of baby blues and depression and anxiety. FOB states that he has been diagnosed with ADHD and is prescribed medication to help. MOB states that FOJarrod got connected to mental health/ medication in September of this year. Sw educated parents on shaken baby prevention and ABCs of safe sleep. Assessment:? MOB and baby admitted following labor and delivery. MOB and FOB both standing over bassinet and tending to baby, preparing for readiness for discharge. Parents were receptive to sw involvement and both participated in completion of assessment. Sw noted interactions between MOB and FOB to appear awkward and slightly forced. MOB reports to being tired and starting to feel anxious following delivery. MOB states that it has been difficult for her body to relax enough to fall asleep. MOB states that she is eager to be home so she is able to get some rest. MOB with mental health history of anxiety and depression. MOB connected to medication management and is prescribed zoloft to help manage her mental health symptoms. FOB also with mental health history, reporting that he has been diagnosed with ADHD and is prescribed medication to help him manage. Parents deny substance use and family history. MOB receptive to getting connected to mental health services and supports to help her manage her mental health during this period. Plan:?? No other services requested or indicated. MOB and baby to be discharged when medically ready. Parents were provided literature regarding: signs and symptoms of baby blues and mood and anxiety disorders, Help Me Grow, shaken baby prevention, ABCs of safe sleep and a list of county resources that are available for them should any needs present themselves. ? No further needs requested or indicated. Ambrocio Montejo, COTTON BAG SEWER, ORE GRADER
== END 2024-11-21 12:05 | disposition home or self-care (01) | DRG 807 ==
LOC: WPOUT 08:32 → WP 08:32
PROVIDERS: Admitting Provider Obstetrics & Gynecology; PCP Internal Medicine; Referring Provider Obstetrics & Gynecology; Visit Provider Obstetrics & Gynecology
DX: O99.824 Streptococcus B carrier state complicating childbirth (principal); Z37.0 Single live birth; E66.9 Obesity, unspecified; F41.9 Anxiety disorder, unspecified; K21.9 Gastro-esophageal reflux disease without esophagitis; O76 Abnormality in fetal heart rate and rhythm complicating labor and delivery; O70.0 First degree perineal laceration during delivery; O99.344 Other mental disorders complicating childbirth; O99.62 Diseases of the digestive system complicating childbirth; O99.214 Obesity complicating childbirth; O26.893 Other specified pregnancy related conditions, third trimester; Z79.899 Other long term (current) drug therapy; Z3A.40 40 weeks gestation of pregnancy; Z67.91 Unspecified blood type, Rh negative
CPT/HCPCS: 59050; 84112; 85025; 86780; 86850; 86900; 86901; 99221; G0378; J2405